=== PATIENT | female | born 1960 | race Caucasian/White ===

== ENCOUNTER → 2019-07-27 14:34 | Outpatient (BNVA) | payer BC, SELFPAY | PROVIDERS: Family Provider Family Medicine; PCP Family Medicine; Visit Provider Podiatrist Foot & Ankle Surgery | DX: Z98.890 Other specified postprocedural states (principal) | CPT/HCPCS: 73630 ==

== ENCOUNTER → 2019-09-06 08:35 | Outpatient (BNVA) | payer BC, SELFPAY | PROVIDERS: Family Provider Family Medicine; PCP Family Medicine; Visit Provider Podiatrist Foot & Ankle Surgery | DX: Z98.890 Other specified postprocedural states (principal); M77.32 Calcaneal spur, left foot | CPT/HCPCS: 73630 ==

== ENCOUNTER 2020-01-26 11:57 | Outpatient (CLI) | payer BC, SELFPAY ==
--- NOTE | 2020-01-26 12:05 | MM_ITS ---
WS: [id number] SCREENING DIGITAL MAMMOGRAM WITH CAD HISTORY: SCREENING COMPARISON: 11/02/2018, 10/20/2017, 10/07/2016 and 09/16/2015 Bilateral CC and MLO views submitted. Computer aided detection analyzed. Breast composition: There are scattered areas of fibroglandular density. Irregular asymmetry measurin g 10 mm 2-3 o'clock axis of the LEFT breast posteriorly. New since the prior study. Additional asymme tries are stable. LEFT breast: Spot compression views (CC and MLO). True ML. Ultrasound to follow if abnormality fauzia adam. MM/[place] [id number] IMPRESSION: BI-RADS: 0-Incomplete: Need additional imaging evaluation FOLLOW UP: Need Additional Imaging
== END 2020-01-26 11:58 | disposition home or self-care (01) ==
LOC: RADSHAW 12:03
PROVIDERS: PCP Family Medicine; Visit Provider Family Medicine
DX: Z12.31 Encounter for screening mammogram for malignant neoplasm of breast (principal); N64.89 Other specified disorders of breast
CPT/HCPCS: 77067

== ENCOUNTER 2020-02-22 08:38 | Outpatient (CLI) | payer BC, SELFPAY ==
--- NOTE | 2020-02-22 08:42 | US_ITS ---
WS: [id number] ADDITIONAL VIEWS LEFT MAMMOGRAM LEFT BREAST ULTRASOUND HISTORY: ABNORMAL MAMMOGRAM COMPARISON: 01/26/2020 and 11/02/2018 and 10/20/2017 LEFT MAMMOGRAM: Spot compression views and true ML. Asymmetry persists in the central LEFT breast just lateral to the nipple. No distortion. This asymmet ry may have been present on prior studies but appears more obvious on more recent examination. LEFT BREAST ULTRASOUND 2-D and color Doppler imaging submitted. By ultrasound no abnormality is identified. Ultrasound is directed to the lateral LEFT breast. US/US breast LT limited* [id number] IMPRESSION: BI-RADS: 3-Probably Benign FOLLOW UP: 6 Month Follow-up Recommend diagnostic mammogram in 6 months LEFT breast and possible ultrasound to follow. This asymmetry needs to be evaluated for long-term stability.
== END 2020-02-22 08:39 | disposition home or self-care (01) ==
LOC: RADSHAW 08:39
PROVIDERS: PCP Family Medicine; Visit Provider Family Medicine
DX: R92.8 Other abnormal and inconclusive findings on diagnostic imaging of breast (principal); N64.89 Other specified disorders of breast
CPT/HCPCS: 76642; 77065

== ENCOUNTER 2020-08-19 08:41 | Outpatient (CLI) | payer BC, SELFPAY ==
--- NOTE | 2020-08-19 08:51 | MM_ITS ---
WS: [id number] LEFT DIGITAL MAMMOGRAPHY WITH CAD CLINICAL INFORMATION: 6 MO F/U;ABNL/INCONCLUSIVE FINDINGS ON DIAG IMAGING OF BREAS HISTORY: COMPARISON: February 22, 2020 TECHNIQUE: views of the left breast were obtained. FINDINGS: Scattered fibroglandular densities of the left breast. Lucent centered calcifications left breast. Pe rsistent but unchanged asymmetry in the central left breast cyst lateral to the nipple. Ultrasound is pending. No other interval changes. ULTRASOUND BREAST LEFT TECHNIQUE: Ultrasound left breast focused area of concern. CLINICAL INFORMATION: 6 MO F/U;ABNL/INCONCLUSIVE FINDINGS ON DIAG IMAGING OF BREAS FINDINGS: Ultrasound left breast at the 2 to 4:00 position. No evidence of pathologic mass or lesion. No lesion s to target for biopsy. No suspicious findings. MM/[place] [id number] IMPRESSION: BI-RADS: 2-Benign FOLLOW UP: 1 Year Follow-up Recommend return to annual screening mammography.
== END 2020-08-19 08:42 | disposition home or self-care (01) ==
LOC: RADSHAW 08:46
PROVIDERS: PCP Family Medicine; Visit Provider Family Medicine
DX: R92.8 Other abnormal and inconclusive findings on diagnostic imaging of breast (principal)
CPT/HCPCS: 76642; 77065

== ENCOUNTER 2021-09-09 10:42 | Outpatient (CLI) | payer BC, SELFPAY ==
--- NOTE | 2021-09-09 10:52 | MM_ITS ---
WS: [id number] BILATERAL DIGITAL SCREENING MAMMOGRAPHY WITH CAD CLINICAL INFORMATION: SCREENING HISTORY: Screening mammogram. No current complaints. COMPARISON: August 19, 2020 TECHNIQUE: Bilateral CC and MLO views. FINDINGS: Scattered fibroglandular densities bilaterally. Lucent centered calcifications No suspicious focal ma ss, asymmetry, calcifications, or architectural distortion. No evidence of malignancy. MM/[place] [id number] IMPRESSION: BI-RADS: 2-Benign FOLLOW UP: 1 Year Follow-up Recommend return to annual screening mammography.
== END 2021-09-09 10:43 | disposition home or self-care (01) ==
LOC: RADSHAW 10:47
PROVIDERS: PCP Family Medicine; Visit Provider Family Medicine
DX: Z12.31 Encounter for screening mammogram for malignant neoplasm of breast (principal)
CPT/HCPCS: 77067

== ENCOUNTER 2022-09-16 12:48 | Outpatient (CLI) | payer BC, SELFPAY ==
--- NOTE | 2022-09-16 12:54 | MM_ITS ---
WS: [id number] BILATERAL 3D TOMOSYNTHESIS DIGITAL SCREENING MAMMOGRAPHY WITH CAD CLINICAL INFORMATION: SCREEN HISTORY: Screening mammogram. No current complaints. COMPARISON: September 09, 2021 TECHNIQUE: Bilateral CC and MLO views. FINDINGS: Scattered fibroglandular densities bilaterally. No suspicious focal mass, asymmetry, calcifications, or architectural distortion. No evidence of malignancy. Punctate and lucent centered calcifications. MM/[place] [id number] IMPRESSION: BI-RADS: 2-Benign FOLLOW UP: 1 Year Follow-up Recommend return to annual screening mammography.
== END 2022-09-16 12:49 | disposition home or self-care (01) ==
LOC: RAD 12:51
PROVIDERS: PCP Family Medicine; Visit Provider Family Medicine
DX: Z12.31 Encounter for screening mammogram for malignant neoplasm of breast (principal)
CPT/HCPCS: 77063; 77067

== ENCOUNTER 2023-08-13 14:39 | Inpatient (IN) | payer BC, SELFPAY ==
[2023-08-13 14:40] VITALS: BP 136/90; PULSE 81; RESP 14; TEMP 37.7; O2SAT 94
--- NOTE | 2023-08-13 14:50 | XR_ITS ---
WS: [id number] XR KUB portable [id number] REASON FOR EXAM: lower abd pain FINDINGS: No free air or retroperitoneal air. Moderate amount of stool retained throughout the colon. Several short segments gas-filled small bowel, nonspecific. No mass. No urinary tract calculi. Calcification of sacral ligaments. Mild degenerative spondylosis in the lumbar spine. IMPRESSION: No acute abnormality.
--- NOTE | 2023-08-13 14:57 | ECG_ITS ---
[facility] Test Date: 2023-08-13 Pat Name: Nova Mary Department: Room: Gender: Female Security Project Manager: : 1960 Requested By: Imtiaz Prince Order Number: [id number] Courtney MD: Kp Sellers M.D. Measurements Intervals Crawford Rate: 81 P: 30 WV: 144 QRS: 11 QRSD: 95 T: 19 QT: 340 QTc: 397 Interpretive Statements SINUS RHYTHM MINIMAL ST DEPRESSION [0.025+ mV ST DEPRESSION] No previous ECG available for comparison Electronically Signed On 08-13-2023 21:47:25 MATH TUTOR by Kp Sellers M.D. [email or web address].[email or web address] [id number]
[2023-08-13 15:08] VITALS: BP 136/90; PULSE 80; RESP 20; O2SAT 92
[2023-08-13 15:12] LABS: Basophils % 0.6 %; Eosinophils # 0.1 10^3/uL (0.0-0.8); Eosinophils % 1.7 %; Hematocrit 34.5 % (36-47); Lymphocytes # 0.8 10^3/uL (0.8-4.8); Lymphocytes % 11.8 %; Mean Corpuscular HGB Conc 32.5 g/dL (30-55); Mean Corpuscular Hemoglobin 26.9 pg (27-33); Mean Corpuscular Volume 82.9 fl (85-98); Mean Platelet Volume 8.4 fL (7.4-10.4); Monocytes # 0.7 10^3/uL (0.2-0.9); Monocytes % 10.7 %; Neutrophils # 5.19 10^3/uL (1.8-7.7); Neutrophils % 74.9 %; Nucleated Red Blood Cells % 0 %; Platelet Count 459 10^3/cmm (157-399); Red Blood Count 4.16 10^6/uL (3.85-5.65); Red Cell Distribution Width 14.6 % (12.1-15.1); White Blood Count 6.93 10^3/uL (3.29-11.43)
[2023-08-13 15:31] LABS: Add Urine Microscopic? YES; Bilirubin Urine 1+ (Negative); Blood Urine Neg (Negative); Glucose Urine UA Norm (Normal); Ketones Urine 1+ (Negative); Leukocyte Esterase Urine 1+ (Negative); Nitrate Urine Negative (Negative); Protein Urine 1+ (Negative); RBC Urine 0-4 /hpf (0-2); Specific Gravity, Urine 1.015 (1.005-1.030); Squamous Epithelial Cell Urine 15-25 /hpf (0-5); Urine Appearance SL Hazy (CLEAR); Urine Color Yellow (Yellow); Urobilinogen Urine 4 mg/dL (Negative); pH Urine 5 (5-7)
[2023-08-13 15:32] LABS: Add Urine Culture? No; Bacteria Urine TRACE /hpf; Mucus Urine 4+ /hpf
[2023-08-13 15:36] LABS: Alanine Aminotransferase 10 U/L (0-33); Albumin Level 3.4 g/dL (3.5-5.2); Alkaline Phosphatase 108 U/L (35-105); Anion Gap 16.8 (5-19); Aspartate Amino Transferase 12 U/L (0-32); Blood Urea Nitrogen 15 mg/dL (8-23); Calcium 9.2 mg/dL (8.5-10.5); Carbon Dioxide 28 mmol/L (22-29); Chloride 97 mmol/L (98-107); Globulin 3.8 g/dL (1.3-4.6); Glomerular Filtration Rate 101.3 mL/min (90-130); Glucose 123 mg/dL (65-115); Lipase 19 U/L (13-60); Osmolality Calculated 290 mOsm/kg (285-295); Sodium 139 mmol/L (136-145); Total Bilirubin 0.2 mg/dL (0.15-1.2); Total Protein 7.2 g/dL (6.6-8.7)
[2023-08-13 15:38] LABS: Potassium 2.8 mmol/L (3.5-5.1)
[2023-08-13] MEDS: potassium chloride ER 20 mEq Tablet 60 MEQ PO (15:51)
[2023-08-13 16:08] VITALS: BP 136/90; PULSE 79; RESP 27; O2SAT 92
--- NOTE | 2023-08-13 16:40 | ED_ITS ---
HPI - Abdominal Pain 2 General: Chief Complaint: Abdominal Pain Stated Complaint: low potassium Time Seen by Provider: 08/13/23 14:45 History of Present Illness: 62-year-old female presents emergency de partment with complaints that her primary care provider checked her potassium level and it was low and told her to come to the emergency department to have it evaluated. Patient also complains of bilateral lower abdominal pain. She states this has been ongoing for several months intermittently since March. She states she was also taking a diuretic and recently advised her primary care doctor Dr. Rachael Barrios that she was going to stop her diuretics as the swelling in her lower extremities has now subsided. She rates her lower abdominal pain an 8 out of 10 when it occurs. She states she has no difficulty with bowel movements. Review of Systems 2 GI: Reports: abdominal pain PFSH ED 2 PFSH: Medical History Bunion of left foot Bunion, right foot Hammertoe of left foot Surgical History S/P hammer toe correction S/P bunionectomy Family History Mother Cancer Denies family history of Diabetes CAD (coronary artery disease) Clotting disorder Dementia Hyperlipidemia Psychiatric illness Chronic kidney disease (CKD) Suicide Anesthesia complication Bleeding disorder Family history of premature coronary artery disease Lung disease Hypertension Stroke Social History Smoking and tobacco/nicotine status: former use of tobacco/nicotine Quit status (tobacco/nicotine): has quit using Year quit tobacco: 5 years ago Second hand smoke exposure: No Alcohol intake: former Substance/Drug Use: never Physical Exam 2 Narrative: EXAM NARRATIVE: Constitutional: the patient appears well nourished and of normal development. Vital signs as documented. No acute distress at present. Alert and oriented-to person, place, time and situation. Head, eyes, ears, nose, mouth, throat: Normocephalic, atraumatic. Pupils-equal, round, reactive to light. No scleral icterus. Normal-appearing external ears. Normal appearing nasal turbinates, no drainage. No obvious oral lesions, posterior oropharynx without erythema or exudates. Neck: Supple, trachea is midline, no lymphadenopathy, no jugular venous distension, thyromegaly, or carotid bruits. Carotid upstrokes are brisk bilaterally. Lungs: clear to auscultation to all lung cunningham. Symmetrical rise and fall of chest, no obvious signs of increased work of breathing at present. Cardiac: Regular rate and rhythm, positive S1, S2. No murmurs, rubs or gallops that I can appreciate Abdomen: Soft, slightly tender to palpation to the bilateral lower abdomen., normal active bowel sounds to all quadrants. No palpable masses, no organomegaly and abdominal bruits. Extremities: 2+ pulses in the upper extremities that are equal bilaterally, 2+ pulses in the lower extremities that are equal bilaterally. Non-edematous. Moves all extremities well, sensation to all extremities are noted. Skin: Warm, dry, intact. Course 2 Vital Signs: Vital signs: Vital Signs Temperature 98.1 F 08/15/23 12:00 Pulse Rate 80 08/15/23 12:00 Respiratory Rate 16 08/15/23 12:00 Blood Pressure 137/83 08/15/23 12:00 Pulse Oximetry 93 08/15/23 12:00 Oxygen Delivery Me thod Room Air 08/15/23 12:00 MDM - Abdominal Pain Medical Decision Making Physical exam completed and documented, I reviewed the patient's CBC and CMP it does appear that her potassium level is low given her complaints of lower abdominal pain I will obtain a CT scan of her abdomen pelvis for evaluation. Differential diagnosis includes constipation, gastroenteritis, colitis, diverticulitis, abdominal abscess. I did provide the patient potassium repletion and given the CT scan findings have provided her antibiotics and advised her that I would admit to the hospital for additional evaluation treatment and care. Lab Data 08/15/23 03:55 08/15/23 03:55 Labs/Radiology: Radiology Impressions Abdomen/Pelvis CT 08/13/23 16:59 IMPRESSION: 1. Descending colon and sigmoid diverticulosis. Changes consistent with severe diverticulitis with localized perforation in the proximal/mid sigmoid colon. There is a pericolonic abscess with internal foci of air just medial to the proximal sigmoid colon and a 2nd pericolonic abscess just anterior to the proximal/mid sigmoid colon. Findings are consistent 2. Incidental/nonacute findings are listed in the report. COMMENTS: 1. THIS REPORT CONTAINS FINDINGS THAT MAY BE CRITICAL TO PATIENT CARE. The findings were verbally communicated via telephone conference with MERCEDES Daigle at 5:56 PM DELIVERY SUPERVISOR on 08/13/2023. The findings were acknowledged and understood. 2. Consistent with the [employer]'s Incidental Findings Committee white paper (J Am Megan Radiol 2018): Any incidental renal lesion less than 1 cm or classified as too small to characterize, or any incidental cystic renal lesion characterized as simple-appearing, is likely benign. No follow-up imaging is recommended for these lesions per consensus recommendations based on imaging criteria. Laboratory Results WBC 6.93 10^3/uL (3.29-11.43) 08/13/23 15:03 RBC 4.16 10^6/uL (3.85-5.65) 08/13/23 15:03 Hgb 11.20 g/dL (11.27-16.99) L 08/13/23 15:03 Hct 34.5 % (36-47) L 08/13/23 15:03 MCV 82.9 fl (85-98) L 08/13/23 15:03 MCH 26.9 pg (27-33) L 08/13/23 15:03 MCHC 32.5 g/dL (30-55) 08/13/23 15:03 RDW 14.6 % (12.1-15.1) 08/13/23 15:03 Plt Count 459 10^3/cmm (157-399) H 08/13/23 15:03 MPV 8.4 fL (7.4-10.4) 08/13/23 15:03 Neut % (Auto) 74.9 % 08/13/23 15:03 Lymph % (Auto) 11.8 % 08/13/23 15:03 [place] % (Auto) 10.7 % 08/13/23 15:03 Eos % (Auto) 1.7 % 08/13/23 15:03 Baso % (Auto) 0.6 % 08/13/23 15:03 Neut # (Auto) 5.19 10^3/uL (1.8-7.7) 08/13/23 15:03 Lymph # (Auto) 0.8 10^3/uL (0.8-4.8) 08/13/23 15:03 [place] # (Auto) 0.7 10^3/uL (0.2-0.9) 08/13/23 15:03 Eos # (Auto) 0.1 10^3/uL (0.0-0.8) 08/13/23 15:03 Baso # (Auto) 0.0 10^3/uL (0.0-0.1) 08/13/23 15:03 Nucleated RBC % (auto) 0 % 08/13/23 15:03 Nucleated RBCs # 0.0 /100WBC 08/13/23 15:03 Sodium 139 mmol/L (136-145) 08/13/23 15:03 Potassium 2.8 mmol/L (3.5-5.1) L* 08/13/23 15:03 Chloride 97 mmol/L (98-107) L 08/13/23 15:03 Carbon Dioxide 28 mmol/L (22-29) 08/13/23 15:03 Anion Gap 16.8 (5-19) 08/13/23 15:03 BUN 15 mg/dL (8-23) 08/13/23 15:03 Creatinine 0.6 mg/dL (0.5-0.9) 08/13/23 15:03 GFR Calculation 101.3 mL/min (90-130) 08/13/23 15:03 Glucose 123 mg/dL (65-115) H 08/13/23 15:03 Calculated Osmolality 290 mOsm/kg (285-295) 08/13/23 15:03 Calcium 9.2 mg/dL (8.5-10.5) 08/13/23 15:03 Total Bilirubin 0.2 mg/dL (0.15-1.2) 08/13/23 15:03 AST 12 U/L (0-32) 08/13/23 15:03 ALT 10 U/L (0-33) 08/13/23 15:03 Alkaline Phosphatase 108 U/L (35-105) H 08/13/23 15:03 Total Protein 7.2 g/dL (6.6-8.7) 08/13/23 15:03 Albumin 3.4 g/dL (3.5-5.2) L 08/13/23 15:03 Globulin 3.8 g/dL (1.3-4.6) 08/13/23 15:03 Lipase 19 U/L (13-60) 08/13/23 15:03 Urine Color Yellow (Yellow) 08/13/23 14:56 Urine Appearance Sl hazy (CLEAR) A 08/13/23 14:56 Urine pH 5 (5-7) 08/13/23 14:56 Ur Specific [place] 1.015 (1.005-1.030) 08/13/23 14:56 Urine Protein 1+ (Negative) H 08/13/23 14:56 Urine Glucose (UA) Norm (Normal) 08/13/23 14:56 Urine Ketones 1+ (Negative) H 08/13/23 14:56 Urine Blood Neg (Negative) 08/13/23 14:56 Urine Nitrate Negative (Negative) 08/13/23 14:56 Urine Bilirubin 1+ (Negative) H 08/13/23 14:56 Urine Urobilinogen 4 mg/dL (Negative) H 08/13/23 14:56 Ur Leukocyte Esterase 1+ (Negative) H 08/13/23 14:56 Urine RBC 0-4 /hpf (0-2) H 08/13/23 14:56 Urine WBC 10-15 /hpf (0-5) H 08/13/23 14:56 Ur Squamous Epith Cells 15-25 /hpf (0-5) H 08/13/23 14:56 Amorphous Sediment Not Reportable 08/13/23 14:56 Urine Bacteria Trace /hpf (NONE) 08/13/23 14:56 Urine Mucus 4+ /hpf 08/13/23 14:56 All radiology interpretation(s) finalized by discharge Discharge Plan Discharge Patient Disposition: Admitted As Inpatient Admit Provider: Latricia Rosenthal Clinical Impression: Pericolonic abscess, Diverticulitis of large intestine with complication, Acute hypokalemia Condition: Stable Coding Level of Care Code ED Carpenter Repairer for Tjg Joseph
--- NOTE | 2023-08-13 16:59 | CTR_ITS ---
PROCEDURE INFORMATION: Exam: CT Abdomen And Pelvis With Contrast Exam date and time: 08/13/2023 5:17 PM Age: 62 years old Clinical indication: Abdominal pain; Localized; Left lower quadrant (llq); Additional info: Abd pain llq TECHNIQUE: Imaging protocol: Computed tomography of the abdomen and pelvis with contrast. Sagittal and coronal reformatted images were created and reviewed. Radiation optimization: All CT scans at this facility use at least one of these dose optimization techniques: automated exposure control; mA and/or kV adjustment per patient size (includes targeted exams where dose is matched to clinical indication); or iterative reconstruction. Contrast material: OMNI 350; Contrast volume: 100 ml; Contrast route: INTRAVENOUS (IV); COMPARISON: CR XR KUB portable [id number] 08/13/2023 3:05 PM RADIATION DOSE METRICS: Total DLP (mGy-cm): 928.96 FINDINGS: Lungs: Visualized lungs are clear. Pleural spaces: No pleural effusion. Heart: Visualized portions of the heart are mildly enlarged. Liver: The liver is unremarkable. Gallbladder and bile ducts: The gallbladder is unremarkable. No biliary ductal dilatation. Pancreas: The pancreas is unremarkable. No pancreatic ductal dilatation. Spleen: The spleen is unremarkable. Adrenal glands: The right and left adrenal glands are unremarkable. Kidneys and ureters: The right kidney is unremarkable. Subcentimeter hypodense focus in the left kidney that is too small to characterize, however likely represents a small cyst. Stomach and bowel: The stomach is unremarkable for the degree of distension. No acute abnormality in the small bowel. Numerous diverticula in the descending colon and sigmoid colon. Marked wall thickening with extensive surrounding pericolonic inflammatory change involving the proximal/mid sigmoid colon. There is a pericolonic abscess with internal foci of air just medial to the proximal sigmoid colon measuring 4.2 x 5.1 x 2.9 cm (series 11, image 26 and series 5, image 66). A 2nd pericolonic abscess just anterior to the proximal/mid sigmoid colon measures 1.8 x 1.4 x 2.0 cm (series 11, image 23 and series 5, image 76). Appendix: The appendix is visualized and is unremarkable. No findings to suggest acute appendicitis. Intraperitoneal space: No free intraperitoneal air. No ascites. See also under stomach and bowel . Vasculature: Mild atherosclerotic changes in the visualized arteries. No evidence for aortic aneurysm or aortic dissection. Hepatic veins, portal veins, splenic vein, and SMV are patent. Lymph nodes: No lymphadenopathy. Urinary bladder: The bladder is unremarkable for the degree of distension. Reproductive: Small partially calcified intrauterine leiomyoma measuring 1.0 x 1.0 cm. The right and left ovaries are unremarkable. Bones/joints: Bones are mildly osteopenic. The patient has had a previous right hip arthroplasty. Moderate degenerative change at the left hip. Multilevel degenerative changes of varying severity in the Soft tissues: No acute abnormality in the extra-abdominal soft tissues. CT/CT abdomen pelvis w con* [id number] IMPRESSION: 1. Descending colon and sigmoid diverticulosis. Changes consistent with severe diverticulitis with localized perforation in the proximal/mid sigmoid colon. There is a pericolonic abscess with internal foci of air just medial to the proximal sigmoid colon and a 2nd pericolonic abscess just anterior to the proximal/mid sigmoid colon. Findings are consistent 2. Incidental/nonacute findings are listed in the report. COMMENTS: 1. THIS REPORT CONTAINS FINDINGS THAT MAY BE CRITICAL TO PATIENT CARE. The findings were verbally communicated via telephone conference with MERCEDES Daigle at 5:56 PM FISH FLIPPER on 08/13/2023. The findings were acknowledged and understood. 2. Consistent with the [employer]'s Incidental Findings Committee white paper (J Am Megan Radiol 2018): Any incidental renal lesion less than 1 cm or classified as too small to characterize, or any incidental cystic renal lesion characterized as simple-appearing, is likely benign. No follow-up imaging is recommended for these lesions per consensus recommendations based on imaging criteria.
[2023-08-13] MEDS: cefTRIAXone 1,000 MG in sodium chloride 0.9% (plus) 50 ML 100 MG IV (17:04)
[2023-08-13] MEDS: iohexol 350 mg/mL 500 mL Btl (per mL) IV (17:21)
[2023-08-13 17:43] VITALS: BP 138/86; PULSE 78; RESP 14; O2SAT 98
[2023-08-13 19:12] VITALS: BP 124/79; PULSE 74; RESP 14; O2SAT 91
[2023-08-13 19:33] LABS: Lactic Sepsis W/Reflex 0.7 mmol/L (0.5-2.2)
[2023-08-13 19:39] LABS: Procalcitonin 0.28 ng/mL (0-0.5)
[2023-08-13 20:00] VITALS: BP 107/70; PULSE 73; RESP 18; TEMP 36.3; O2SAT 94
--- NOTE | 2023-08-13 20:01 | P.HP_ITS ---
Providers/Chief Complaint 2 Admitting Physician: Latricia Rosenthal MD Primary Care Provider: Rachael Barrios MD Chief Complaint: low potassium History of Present Illness Nova Mary is a 62 year old female who presented to the emergency room with chief complaints of 3 months of intermittent abdominal pain. Patient states that she has been experiencing pain in her lower abdomen for about 3 months. Does not recall any immediate inciting factors or trauma. States that pain is located in lower abdomen, varies between 3-6 on intensity, nonradiating sharp stabbing type. She had been taking medications for gastritis/reflux and gave up on NSAIDs thinking that that may be the problem. Visited with her PCP earlier this week and was recommended to get a CAT scan. This was completed in the ER and showed a pericolonic abscess with internal foci of air just medial to the proximal sigmoid colon measuring 4.2 x 5.1 x 2.9 cm. A second pericolonic abscess just anterior to the proximal/mid sigmoid colon measures 1.8 x 1.4 x 2 cm. Appendix was unremarkable. Numerous small diverticuli were noted in the descending colon and the sigmoid colon. Patient states she had a colonoscopy 5 to 6 years ago, was overall unremarkable. She gets annual FOB screening which was recently negative. She has had regular bowel movements, does take Metamucil daily for the same. History of chronic constipation. She has not noticed any blood or mucus in stools. No diarrhea. No nausea or vomiting, however her appetite has been much lower since the symptoms started. She estimates she has lost 23 pounds over the last 3 months. Not noticed any fevers at home. Tmax 99.9 Fahrenheit in the hospital. No past history of known colon malignancy. No family history of colon cancer. Her mother had breast cancer. Review of Systems 2 General: Reports: 10 or more systems reviewed and unremarkable except in HPI and below Const: Denies: fever(s), chills or body aches Eyes: Denies: change in vision, blurry vision or photophobia ENMT: Reports: hoarseness; Denies: throat pain, enlarged tonsils, odynophagia or nasal congestion Card: Denies: chest pain, palpitations, irregular heart rhythm, edema, swelling of feet/ankles, lightheadedness, pre-syncope, dyspnea on exertion or orthopnea Resp: Denies: dyspnea, productive cough, non-productive cough, wheezing, stridor, pain on inspiration, change in phlegm color, hemoptysis or chest congestion GI: Denies: abdominal pain, nausea, vomiting, hematemesis, coffee ground emesis, dysphagia, heartburn, diarrhea, constipation, GI cramping, change in stool character, hematochezia or melena : Denies: flank pain, difficulty voiding, dysuria, urinary frequency, urinary urgency, urinary hesitancy or hematuria Musc: Denies: neck pain, back pain, extremity pain, joint swelling, joint warmth or deformity Neuro: Denies: headache(s), numbness in extremities, weakness in extremities, sensory changes, difficulty walking, frequent falls, dizziness, vertigo, behavioral changes, Slurred speech present or seizure-like activity Psych: Denies: anxiety, depression, suicidal ideation or homicidal ideation Endo: Denies: polyuria, polydipsia, tired all the time, cold intolerance or hot flashes Wood/Lymph: Denies: easy bruising or easy bleeding Medications/Allergies Home Medications Medication Instructions Recorded Confirmed Last Taken Type vitamin B complex (B 1 tab PO DAILY 07/27/19 08/13/23 08/12/23 History Complex-Vitamin B12 tablet) calcium carbonate 500 mg calcium 500 mg PO BID 08/13/23 08/13/23 08/12/23 History (1,250 mg) tablet bzqqhlj-movczohfs-sgdt 333 mg-133 1 tab PO DAILY 08/13/23 08/13/23 08/12/23 History mg-5 mg tablet cholecalciferol (vitamin D3) 25 25 mcg PO DAILY 08/13/23 08/13/23 08/12/23 History mcg (1,000 unit) tablet (Vitamin D3) dorzolamide 22.3 mg-timolol 6.8 1 drp ophthalmic (eye) DAILY 08/13/23 08/13/23 08/12/23 History mg/mL eye drops fluticasone propionate 50 2 spray intranasal DAILY PRN 08/13/23 08/13/23 Unknown History mcg/actuation nasal Allergy Symptoms spray,suspension latanoprost 0.005 % eye drops 1 drp ophthalmic (eye) DAILY 08/13/23 08/13/23 08/12/23 History levothyroxine 175 mcg tablet 175 mcg PO DAILY 08/13/23 08/13/2324 History (Synthroid) kyzpzwzb-zwz-nxil-FA-Ca carb-vit K 1 tab PO DAILY 08/13/23 08/13/23 08/12/23 History 18 mg iron-400 mcg-500 mg tablet pantoprazole 40 mg tablet,delayed 40 mg PO DAILY 08/13/23 08/13/23 08/12/23 History release potassium chloride 10 mEq 10 meq PO BID 08/13/23 08/13/23 08/12/23 History tablet,extended release propranolol 10 mg tablet 10 mg PO BEDTIME 08/13/23 08/13/23 08/12/23 History Allergies Allergy/AdvReac Type Severity Reaction Status Date / Time No Known Allergies Allergy Verified 07/27/19 14:23 PFSH Acute 2 PFSH: Medical History Bunion of left foot Bunion, right foot Hammertoe of left foot Surgical History S/P hammer toe correction S/P bunionectomy Family History Mother Cancer Denies family history of Diabetes CAD (coronary artery disease) Clotting disorder Dementia Hyperlipidemia Psychiatric illness Chronic kidney disease (CKD) Suicide Anesthesia complication Bleeding disorder Family history of premature coronary artery disease Lung disease Hypertension Stroke Social History Smoking and tobacco/nicotine status: former use of tobacco/nicotine Quit status (tobacco/nicotine): has quit using Year quit tobacco: 5 years ago Second hand smoke exposure: No Alcohol intake: former Substance/Drug Use: never Vitals/I&O/Wt Last Vital Signs Temp 99.9 F H 08/13/23 14:40 Pulse 74 08/13/23 19:12 Resp 14 08/13/23 19:12 BP 124/79 08/13/23 19:12 Pulse Ox 91 08/13/23 19:12 O2 Del Method Room Air 08/13/23 19:12 08/13/23 08/13/23 08/13/23 06:59 14:59 22:59 Intake Total 50 / 50 Balance 50 / 50 Weight last 48 hrs Weight 98.883 kg Physical Exam 2 Narrative: General: No acute distress, AO x3 HEENT: PERRLA, pupils bilaterally equal and reactive, pallors not present Chest: Normal vesicular breath sounds, no added sounds, equal good air entry bilaterally CVS: S1-S2 regular, no murmurs, no tachycardia, no gallops, no rubs Abdomen: Soft, mild tenderness to palpation in the lower abdomen, no organomegaly, bowel sounds present Neuro: No focal deficits, no facial deformity, AO x3, power 5/5 in all limbs Data 08/14/23 04:06 08/14/23 04:06 Other Labs: [facility] [address] [facility] [place] [place] [address] CT Scan Report Signed Patient: Nova Mary Unit #: [id number] : [id number] Age/Sex: 62 / F ADM Date: 08/13/23 Loc: ER Room/Bed: Attending Dr: Ordering Provider/Ordering MD: Imtiaz Prince MD Date of Service: 08/13/23 Procedure(s): CT abdomen pelvis w con* [id number] Accession Number(s): [id number] Report Number: [id number] PROCEDURE INFORMATION: Exam: CT Abdomen And Pelvis With Contrast Exam date and time: 08/13/2023 5:17 PM Age: 62 years old Clinical indication: Abdominal pain; Localized; Left lower quadrant (llq); Additional info: Abd pain llq TECHNIQUE: Imaging protocol: Computed tomography of the abdomen and pelvis with contrast. Sagittal and coronal reformatted images were created and reviewed. Radiation optimization: All CT scans at this facility use at least one of these dose optimization techniques: automated exposure control; mA and/or kV adjustment per patient size (includes targeted exams where dose is matched to clinical indication); or iterative reconstruction. Contrast material: OMNI 350; Contrast volume: 100 ml; Contrast route: INTRAVENOUS (IV); COMPARISON: CR XR KUB portable [id number] 08/13/2023 3:05 PM RADIATION DOSE METRICS: Total DLP (mGy-cm): 928.96 FINDINGS: Lungs: Visualized lungs are clear. Pleural spaces: No pleural effusion. Heart: Visualized portions of the heart are mildly enlarged. Liver: The liver is unremarkable. Gallbladder and bile ducts: The gallbladder is unremarkable. No biliary ductal dilatation. Pancreas: The pancreas is unremarkable. No pancreatic ductal dilatation. Spleen: The spleen is unremarkable. Adrenal glands: The right and left adrenal glands are unremarkable. Kidneys and ureters: The right kidney is unremarkable. Subcentimeter hypodense focus in the left kidney that is too small to characterize, however likely represents a small cyst. Stomach and bowel: The stomach is unremarkable for the degree of distension. No acute abnormality in the small bowel. Numerous diverticula in the descending colon and sigmoid colon. Marked wall thickening with extensive surrounding pericolonic inflammatory change involving the proximal/mid sigmoid colon. There is a pericolonic abscess with internal foci of air just medial to the proximal sigmoid colon measuring 4.2 x 5.1 x 2.9 cm (series 11, image 26 and series 5, image 66). A 2nd pericolonic abscess just anterior to the proximal/mid sigmoid colon measures 1.8 x 1.4 x 2.0 cm (series 11, image 23 and series 5, image 76). Appendix: The appendix is visualized and is unremarkable. No findings to suggest acute appendicitis. Intraperitoneal space: No free intraperitoneal air. No ascites. See also under stomach and bowel . Vasculature: Mild atherosclerotic changes in the visualized arteries. No evidence for aortic aneurysm or aortic dissection. Hepatic veins, portal veins, splenic vein, and SMV are patent. Lymph nodes: No lymphadenopathy. Urinary bladder: The bladder is unremarkable for the degree of distension. Reproductive: Small partially calcified intrauterine leiomyoma measuring 1.0 x 1.0 cm. The right and left ovaries are unremarkable. Bones/joints: Bones are mildly osteopenic. The patient has had a previous right hip arthroplasty. Moderate degenerative change at the left hip. Multilevel degenerative changes of varying severity in the Soft tissues: No acute abnormality in the extra-abdominal soft tissues. CT/CT abdomen pelvis w con* [id number] IMPRESSION: 1. Descending colon and sigmoid diverticulosis. Changes consistent with severe diverticulitis with localized perforation in the proximal/mid sigmoid colon. There is a pericolonic abscess with internal foci of air just medial to the proximal sigmoid colon and a 2nd pericolonic abscess just anterior to the proximal/mid sigmoid colon. Findings are consistent 2. Incidental/nonacute findings are listed in the report. A&P Assessment and plan (1) Pericolonic abscess: Patient presenting today with 3 months of intermittent abdominal pain. Found to have 2 pericolonic abscess, suspected from perforated diverticulitis. no knownw h/o colon ca, last colonoscopy 5-6 years ago Admit to med/surg NPO Start piperacillin/tazobactam empirically for broad spectrum coverage including anaerobes. prn morphine for abdominal pain prn zofran for nausea management Consult with general surgery given abscess size reported > 4-5 cm - assess for feasibility of surgical vs IR drainage Plan dvt ppx: Lovenox Full code Attestations 2 Medical Necessity Statement*: > 2 midnight admission is anticipated for her care Coding Level of Care Code Acute Code for Chg Fwd Diagnoses Pericolonic abscess K63.0
[2023-08-13] MEDS: enoxaparin 40 mg/0.4 mL Syringe SUBCUT (21:06)
[2023-08-13] MEDS: dextrose 5%-ns + KCl 40 40 MEQ/1,000 ML BAG 75 MEQ IV (21:07)
[2023-08-13] MEDS: piperacillin-tazobactam 3.375 GM in sodium chloride 0.9% (plus) 50 ML IV (21:07)
[2023-08-13] MEDS: pantoprazole 40 mg SDV IVP (21:07)
[2023-08-13] MEDS: acetaminophen 325 mg Tablet 650 MG PO (21:24)
[2023-08-14] VITALS (7 sets, daily range): BP systolic 105–124; BP diastolic 68–74; PULSE 59–73; RESP 16–18; TEMP 36.5–37; O2SAT 92–97
[2023-08-14] MEDS: piperacillin-tazobactam 3.375 GM in sodium chloride 0.9% (plus) 50 ML IV ×3 (03:03→20:50)
[2023-08-14 04:39] LABS: Basophils % 0.9 %; Eosinophils # 0.3 10^3/uL (0.0-0.8); Eosinophils % 6.3 %; Hematocrit 30.1 % (36-47); Lymphocytes % 23.3 %; Mean Corpuscular HGB Conc 31.2 g/dL (30-55); Mean Corpuscular Volume 86.5 fl (85-98); Mean Platelet Volume 8.8 fL (7.4-10.4); Monocytes # 0.6 10^3/uL (0.2-0.9); Monocytes % 14.7 %; Neutrophils # 2.33 10^3/uL (1.8-7.7); Neutrophils % 54.3 %; Nucleated Red Blood Cells % 0 %; Platelet Count 355 10^3/cmm (157-399); Red Blood Count 3.48 10^6/uL (3.85-5.65); White Blood Count 4.29 10^3/uL (3.29-11.43)
[2023-08-14 04:57] LABS: Alanine Aminotransferase 9 U/L (0-33); Albumin Level 2.9 g/dL (3.5-5.2); Alkaline Phosphatase 84 U/L (35-105); Anion Gap 11.9 (5-19); Aspartate Amino Transferase 10 U/L (0-32); Blood Urea Nitrogen 11 mg/dL (8-23); Calcium 8.2 mg/dL (8.5-10.5); Carbon Dioxide 29 mmol/L (22-29); Chloride 104 mmol/L (98-107); Glucose 110 mg/dL (65-115); Magnesium 2.1 mg/dL (1.7-2.3); Osmolality Calculated 294 mOsm/kg (285-295); Sodium 142 mmol/L (136-145); Total Bilirubin 0.2 mg/dL (0.15-1.2); Total Protein 5.9 g/dL (6.6-8.7)
[2023-08-14 05:10] LABS: Potassium 2.9 mmol/L (3.5-5.1)
[2023-08-14] MEDS: lidocaine 1% 5 ML in potassium chloride premix 100 ML 25 ML IV (06:24)
--- NOTE | 2023-08-14 07:05 | PC.NURSE ---
At 02:00, Dr. Orozco notified that CT report states Descending colon and sigmoid diverticulosis. Changes consistent with severe diverticulitis with localized perforation in the proximal/mid sigmoid colon. There is a pericolonic abscess with internal foci of air just medial to the proximal sigmoid colon and a 2nd pericolonic abscess just anterior to the proximal/mid sigmoid colon. Patient is not c/o abdominal pain, just states that her abdomen feels sore. Patient educated that she is NPO.
--- NOTE | 2023-08-14 12:49 | PC.CHAP ---
Pastoral Care Encounter/Spiritual Assessment Type of Contact [] Declined harness fitter visit [] Patient/Family/Request visit [] Outpatient visit [] Follow-up visit [] Physician referral [] Code/Alert [x] Routine visit [] Staff referral [] Actively dying [] Patient sleeping [] Family support [] [] Out of room [] Palliative care [] [] Receiving care in room [] Pre-surgical visit [] Trauma [] Long length of stay [] ICU visit [] Other: Relational/Emotional Strength [x] Patient feels connected with others/family/visitors/staff [] Distress [] Loneliness/isolation [] Abandonment Spirituality of Patient [x] Person of Catrachita [x] Attends Restoration of their [place] [x] Believes in Prayer [] Reads Bible or Baptist materials [] There are Spiritual issues to be addressed Laundry Clerk Interventions [x] Prayer [] Active listening [] Non-anxious presence [] Spiritual/emotional support [] Crisis/trauma care [] Spiritual counseling [] Bereavement support [] Provided bereavement packet [] Provided Bible/devotional materials [] Provided toy/stuffed animal, coloring book to patient or family member [] Provided Communion [] Anointing/[place] [] Salvation [] Completed spiritual assessment [] Other: Impact on Illness or Injury [] Angry [] Fearful [] Anxious [] Often cries [] Exhaustion [] Unable to work [] Unable to attend mandaen [] Unable to walk/stand [] Unable to read [] Unable to drive [] Unable to eat/drink [] Unable to sleep [] Unable to be with family [] Patient intubated [] Other: Summary prayed with patient and two friends very sweet people enjoyed having prayer Time spent with patient 5 min
[2023-08-14] MEDS: morphine 4 mg/mL SDV 1 mL 2 MG IVP ×2 (13:00→20:57)
[2023-08-14] MEDS: dextrose 5%-ns + KCl 40 40 MEQ/1,000 ML BAG 75 MEQ IV (13:05)
--- NOTE | 2023-08-14 16:08 | PM.PN ---
Subjective Subjective: No new complaints today except a mild headache. Medications: Reviewed: Yes Vitals/I&O/Wt Last Vital Signs Temp 97.8 F 08/14/23 12:00 Pulse 73 08/14/23 12:00 Resp 16 08/14/23 12:00 BP 124/68 08/14/23 12:00 Pulse Ox 97 08/14/23 12:00 O2 Del Method Room Air 08/13/23 19:50 08/14/23 08/14/23 08/14/23 06:59 14:59 22:59 Intake Total 100 / 150 1000 / 1000 Balance 100 / 150 1000 / 1000 Weight last 48 hrs Weight 99.155 kg Weight 99.155 kg Weight 98.883 kg Physical Exam Narrative: General: No acute distress, AO x3 HEENT: PERRLA, pupils bilaterally equal and reactive, pallors not present Chest: Normal vesicular breath sounds, no added sounds, equal good air entry bilaterally CVS: S1-S2 regular, no murmurs, no tachycardia, no gallops, no rubs Abdomen: Soft, mild tenderness to palpation in the lower abdomen, no organomegaly, bowel sounds present Neuro: No focal deficits, no facial deformity, AO x3, power 5/5 in all limbs Data 08/14/23 04:06 08/14/23 04:06 A&P Assessment and plan (1) Pericolonic abscess: Patient presenting today with 3 months of intermittent abdominal pain. Found to have 2 pericolonic abscess, suspected from perforated diverticulitis. no knownw h/o colon ca, last colonoscopy 5-6 years ago Admit to med/surg NPO Start piperacillin/tazobactam empirically for broad spectrum coverage including anaerobes. prn morphine for abdominal pain prn zofran for nausea management Consult with general surgery given abscess size reported > 4-5 cm - assess for feasibility of surgical vs IR drainage Plan dvt ppx: Lovenox Full code Plan for today August 14, 2023: No acute interim events. Continue IV antibiotics. Blood culture thus far with no growth to date. Attestations Medical Necessity Statement*: Continued admission for IV antibiotics, awaiting surgical assessment. Coding Level of Care Code Acute Code for [facility] Diagnoses Pericolonic abscess K63.0
--- NOTE | 2023-08-14 17:05 | P.CONIM_ITS ---
Providers/Reason For Consult 2 Consulting Physician/Specialty*: Dr. Grey Rubalcava, DO/General surgery Reason for Consult*: Complicated diverticulitis Attending Physician: Latricia Rosenthal MD Primary Care Provider: Rachael Barrios MD History of Present Illness History of Present Illness Nova Mary is a 62 year old female who presents to the hospital with a 3-month history of left lower quadrant and suprapubic abdominal pain. The pain has been dull and constant. The pain does not radiate. Palpation and movement make the pain worse. Nothing seems to make the pain better. She reports nausea but denies any emesis. She denies any diarrhea, constipation, hematochezia and/or melena. Her last colonoscopy was 7 years ago and was reportedly within normal limits. She denies any family history of colon cancer. A CT of the abdomen pelvis shows complicated diverticulitis with 2 pericolonic abscesses at the proximal sigmoid colon. Review of Systems 2 General: Reports: 10 or more systems reviewed and unremarkable except in HPI and below Medications/Allergies Home Medications Medication Instructions Recorded Confirmed Last Taken Type vitamin B complex (B 1 tab PO DAILY 07/27/19 08/13/23 08/12/23 History Complex-Vitamin B12 tablet) calcium carbonate 500 mg calcium 500 mg PO BID 08/13/23 08/13/23 08/12/23 History (1,250 mg) tablet jdafkac-oegbeewil-bzpx 333 mg-133 1 tab PO DAILY 08/13/23 08/13/23 08/12/23 History mg-5 mg tablet cholecalciferol (vitamin D3) 25 25 mcg PO DAILY 08/13/23 08/13/23 08/12/23 History mcg (1,000 unit) tablet (Vitamin D3) dorzolamide 22.3 mg-timolol 6.8 1 drp ophthalmic (eye) DAILY 08/13/23 08/13/23 08/12/23 History mg/mL eye drops fluticasone propionate 50 2 spray intranasal DAILY PRN 08/13/23 08/13/23 Unknown History mcg/actuation nasal Allergy Symptoms spray,suspension latanoprost 0.005 % eye drops 1 drp ophthalmic (eye) DAILY 08/13/23 08/13/23 08/12/23 History levothyroxine 175 mcg tablet 175 mcg PO DAILY 08/13/23 08/13/23 08/12/23 History (Synthroid) zqxlbczk-pzr-lath-FA-Ca carb-vit K 1 tab PO DAILY 08/13/23 08/13/23 08/12/23 History 18 mg iron-400 mcg-500 mg tablet pantoprazole 40 mg tablet,delayed 40 mg PO DAILY 08/13/23 08/13/23 08/12/23 History release potassium chloride 10 mEq 10 meq PO BID 08/13/23 08/13/23 08/12/23 History tablet,extended release propranolol 10 mg tablet 10 mg PO BEDTIME 08/13/23 08/13/23 08/12/23 History Allergies Allergy/AdvReac Type Severity Reaction Status Date / Time No Known Allergies Allergy Verified 07/27/19 14:23 Current Medications Generic Name Dose Route Start Last Admin Trade Name Freq PRN Reason Stop Dose Admin Acetaminophen 650 mg 08/13/23 19:51 08/13/23 21:24 Acetaminophen 325 Mg Tablet PO 650 mg Q6H PRN Administration Mild/Mod Pain Or Temp >/= 101 Enoxaparin Sodium 40 mg 08/13/23 20:00 08/13/23 21:06 Enoxaparin 40 Mg/0.4 Ml Syringe SUBCUT 40 mg Q24H JULIO CÉSAR Administration Piperacillin Sod/Tazobactam 50 mls @ 12.5 mls/hr 08/13/23 20:00 08/14/23 12:28 Sod 3.375 gm/ Sodium Chloride IV 12.5 mls/hr Q8H JULIO CÉSAR Administration Protocol Potassium Chloride/Dextrose/Sod Cl 40 meq in 1,000 mls @ 75 mls/hr 08/13/23 20:00 08/14/23 13:05 Dextrose 5%-Ns + Kcl 40 IV 75 mls/hr .[id number] JULIO CÉSAR Administration Morphine Sulfate 2 mg 08/13/23 19:51 08/14/23 13:00 Morphine 4 Mg/Ml Sdv 1 Ml IVP 2 mg Q4H PRN Administration SEVERE PAIN Pantoprazole Sodium 40 mg 08/13/23 20:00 08/13/23 21:07 Pantoprazole 40 Mg Sdv IVP 40 mg Q24H JULIO CÉSAR Administration PFSH Acute 2 PFSH: Medical History Bunion of left foot Bunion, right foot Hammertoe of left foot Surgical History S/P hammer toe correction S/P bunionectomy Family History Mother Cancer Denies family history of Diabetes CAD (coronary artery disease) Clotting disorder Dementia Hyperlipidemia Psychiatric illness Chronic kidney disease (CKD) Suicide Anesthesia complication Bleeding disorder Family history of premature coronary artery disease Lung disease Hypertension Stroke Social History Smoking and tobacco/nicotine status: former use of tobacco/nicotine Quit status (tobacco/nicotine): has quit using Year quit tobacco: 5 years ago Second hand smoke exposure: No Alcohol intake: former Substance/Drug Use: never Vitals/I&O/Wt Last Vital Signs Temp 97.9 F 08/14/23 16:00 Pulse 59 L 08/14/23 16:00 Resp 16 08/14/23 16:00 BP 114/71 08/14/23 16:00 Pulse Ox 94 08/14/23 16:00 O2 Del Method Room Air 08/13/23 19:50 08/14/23 08/14/23 08/14/23 06:59 14:59 22:59 Intake Total 100 / 150 1000 / 1000 Balance 100 / 150 1000 / 1000 Weight last 48 hrs Weight 218 lb 9.6 oz Weight 218 lb 9.6 oz Weight 218 lb Physical Exam 2 Narrative: General : Patient is well developed , no acute distress, oriented x3 Head : Normal cephalic, a-traumatic. Ears : Pinnae and external canal are normal. Hearing is normal. Eyes : PERRLA, Sclera and injection are normal. No conjunctival discharge. Nose : Mucous membranes are without erythema. Throat : buccal mucosa is normal, gums are without significant recession or hypertrophy. Lungs : Equal chest rise bilaterally, no use of accessory muscles, trachea is midline. Cor : Rate and rhythm are normal. Abdomen : Soft, ND, mild left lower quadrant tenderness, no g/r/m Extremities : No edema, no cyanosis or clubbing, dorsalis pedis pulses are present bilaterally, non-tender to palpation of calves. Upper extremities are normal bilaterally. Back : non-tender to palpation, no CVA tenderness. Neuro : CN II - XII intact, Upper and lower extremities have equal and full strength Data 08/14/23 04:06 08/14/23 04:06 A&P Assessment and plan (1) Diverticulitis of large intestine with complication: (2) Pericolonic abscess: Plan IV antibiotics-antibiotic regimen determined by hospitalist/infectious disease Clear liquid diet She will need a colonoscopy in 4 to 6 weeks to assess resolution of diverticulitis and rule out colon tumor. Afterwards, it is recommended that she get an elective sigmoidectomy to avoid complicated diverticulitis and possible colostomy in the future. She is unhappy with these recommendations however Pericolonic abscesses are not large enough for IR drainage. She would likely benefit from repeat CT prior to discharge No acute surgical intervention Medical management per hospitalist Coding Level of Care Code 39095 Diagnoses Diverticulitis of large intestine with complication K57.32 Pericolonic abscess K63.0
[2023-08-14] MEDS: pantoprazole 40 mg SDV IVP (20:53)
[2023-08-14] MEDS: enoxaparin 40 mg/0.4 mL Syringe SUBCUT (20:55)
[2023-08-15] VITALS (7 sets, daily range): BP systolic 113–142; BP diastolic 60–89; PULSE 68–80; RESP 16–18; TEMP 36.6–37; O2SAT 93–94
[2023-08-15] MEDS: dextrose 5%-ns + KCl 40 40 MEQ/1,000 ML BAG 75 MEQ IV ×2 (00:50→12:14)
[2023-08-15] MEDS: piperacillin-tazobactam 3.375 GM in sodium chloride 0.9% (plus) 50 ML IV ×3 (03:42→21:18)
[2023-08-15 04:33] LABS: Basophils % 0.7 %; Eosinophils # 0.3 10^3/uL (0.0-0.8); Eosinophils % 6.4 %; Lymphocytes # 1.1 10^3/uL (0.8-4.8); Lymphocytes % 24.3 %; Mean Corpuscular HGB Conc 29.7 g/dL (30-55); Mean Corpuscular Hemoglobin 26.6 pg (27-33); Mean Corpuscular Volume 89.5 fl (85-98); Monocytes # 0.4 10^3/uL (0.2-0.9); Monocytes % 8.7 %; Neutrophils # 2.57 10^3/uL (1.8-7.7); Nucleated Red Blood Cells % 0 %; Platelet Count 403 10^3/cmm (157-399); Red Blood Count 3.91 10^6/uL (3.85-5.65); Red Cell Distribution Width 15.4 % (12.1-15.1); White Blood Count 4.36 10^3/uL (3.29-11.43)
[2023-08-15 05:00] LABS: Alanine Aminotransferase 8 U/L (0-33); Albumin Level 3.1 g/dL (3.5-5.2); Alkaline Phosphatase 94 U/L (35-105); Anion Gap 11.6 (5-19); Aspartate Amino Transferase 10 U/L (0-32); Blood Urea Nitrogen 9 mg/dL (8-23); Calcium 8.4 mg/dL (8.5-10.5); Carbon Dioxide 27 mmol/L (22-29); Chloride 109 mmol/L (98-107); Globulin 3.3 g/dL (1.3-4.6); Glucose 96 mg/dL (65-115); Osmolality Calculated 297 mOsm/kg (285-295); Potassium 3.6 mmol/L (3.5-5.1); Sodium 144 mmol/L (136-145); Total Bilirubin 0.2 mg/dL (0.15-1.2); Total Protein 6.4 g/dL (6.6-8.7)
--- NOTE | 2023-08-15 10:29 | P.PN_ITS ---
Subjective 2 Subjective: Patient seen and examined. Tolerated clear liquid diet. Pain well-controlled Vitals/I&O/Wt Last Vital Signs Temp 97.9 F 08/15/23 07:50 Pulse 72 08/15/23 07:50 Resp 16 08/15/23 07:50 BP 122/82 08/15/23 07:50 Pulse Ox 94 08/15/23 07:50 O2 Del Method Room Air 08/15/23 07:50 08/14/23 08/15/23 08/15/23 22:59 06:59 14:59 Intake Total 155 / 1155 931.25 / 2086.25 480 / 480 Balance 155 / 1155 931.25 / 2086.25 480 / 480 Weight last 48 hrs Weight 220 lb 8 oz Weight 218 lb 9.6 oz Weight 218 lb 9.6 oz Weight 218 lb Physical Exam 2 Narrative: General : Patient is well developed , no acute distress, oriented x3 Head : Normal cephalic, a-traumatic. Ears : Pinnae and external canal are normal. Hearing is normal. Eyes : PERRLA, Sclera and injection are normal. No conjunctival discharge. Nose : Mucous membranes are without erythema. Throat : buccal mucosa is normal, gums are without significant recession or hypertrophy. Lungs : Equal chest rise bilaterally, no use of accessory muscles, trachea is midline. Cor : Rate and rhythm are normal. Abdomen : Soft, ND, minimal left lower quadrant tenderness, no g/r/m Extremities : No edema, no cyanosis or clubbing, dorsalis pedis pulses are present bilaterally, non-tender to palpation of calves. Upper extremities are normal bilaterally. Back : non-tender to palpation, no CVA tenderness. Neuro : CN II - XII intact, Upper and lower extremities have equal and full strength Data 08/15/23 03:55 08/15/23 03:55 A&P Assessment and plan (1) Diverticulitis of large intestine with complication: (2) Pericolonic abscess: Plan IV antibiotics-antibiotic regimen determined by hospitalist/infectious disease Advance to full liquid diet She will need a colonoscopy in 4 to 6 weeks to assess resolution of diverticulitis and rule out colon tumor. Afterwards, it is recommended that she get an elective sigmoidectomy to avoid complicated diverticulitis and possible colostomy in the future. She is unhappy with these recommendations however Pericolonic abscesses are not large enough for IR drainage. She would likely benefit from repeat CT prior to discharge No acute surgical intervention Medical management per hospitalist Attestations 2 Medical Necessity Statement*: Per primary Coding Level of Care Code Acute Code for Chg Fwd Diagnoses Diverticulitis of large intestine with complication K57.32 Pericolonic abscess K63.0
[2023-08-15] MEDS: morphine 4 mg/mL SDV 1 mL 2 MG IVP ×2 (12:13→21:19)
--- NOTE | 2023-08-15 17:23 | P.PN_ITS ---
Subjective 2 Subjective: reports abdominal pain is improving. No new complaints today. headache is better Medications: Reviewed: Yes Vitals/I&O/Wt Last Vital Signs Temp 98.2 F 08/15/23 16:00 Pulse 78 08/15/23 16:00 Resp 16 08/15/23 16:00 BP 142/89 08/15/23 16:00 Pulse Ox 94 08/15/23 16:00 O2 Del Method Room Air 08/15/23 16:00 08/15/23 08/15/23 08/15/23 06:59 14:59 22:59 Intake Total 931.25 / 2086.25 1745 / 1745 650 / 2395 Balance 931.25 / 2086.25 1745 / 1745 650 / 2395 Weight last 48 hrs Weight 100.017 kg Weight 99.155 kg Weight 99.155 kg Physical Exam 2 Narrative: General: No acute distress, AO x3 HEENT: PERRLA, pupils bilaterally equal and reactive, pallors not present Chest: Normal vesicular breath sounds, no added sounds, equal good air entry bilaterally CVS: S1-S2 regular, no murmurs, no tachycardia, no gallops, no rubs Abdomen: Soft, mild tenderness to palpation in the lower abdomen, no organomegaly, bowel sounds present Neuro: No focal deficits, no facial deformity, AO x3, power 5/5 in all limbs Data 08/15/23 03:55 08/15/23 03:55 A&P Assessment and plan (1) Pericolonic abscess: Patient presenting today with 3 months of intermittent abdominal pain. Found to have 2 pericolonic abscess, suspected from perforated diverticulitis. no knownw h/o colon ca, last colonoscopy 5-6 years ago Admit to med/surg NPO Start piperacillin/tazobactam empirically for broad spectrum coverage including anaerobes. prn morphine for abdominal pain prn zofran for nausea management Consult with general surgery given abscess size reported > 4-5 cm - assess for feasibility of surgical vs IR drainage Plan dvt ppx: Lovenox Full code Plan for today August 14, 2023: No acute interim events. Continue IV antibiotics. Blood culture thus far with no growth to date. Plan for today August 15, 2023. Patient's abdominal pain is improving. No current indication for surgical or IR intervention. Blood culture remains negative so far. Plan for 5 days of IV antibiotics until August 17, repeat CT on Wednesday to ensure that there is no worsening of further complications. Thereafter can likely transition to oral ciprofloxacin and metronidazole if continues to tolerate p.o. intake and repeat an outpatient CAT scan in 10 days from discharge. Results of the CT to be followed as outpatient with general surgery. Patient acknowledges understanding of the plan. Currently on a full liquid diet which she appears to be tolerating. Attestations 2 Medical Necessity Statement*: Continued need for IV inpatient antibiotics Coding Level of Care Code Acute Code for Chg Fwd Diagnoses Pericolonic abscess K63.0
[2023-08-15] MEDS: pantoprazole 40 mg SDV IVP (21:18)
[2023-08-15] MEDS: enoxaparin 40 mg/0.4 mL Syringe SUBCUT (21:18)
[2023-08-16] VITALS: BP 120/75; PULSE 76; RESP 16; TEMP 37; O2SAT 96
[2023-08-16] MEDS: dextrose 5%-ns + KCl 40 40 MEQ/1,000 ML BAG 75 MEQ IV ×2 (01:42→17:43)
[2023-08-16 05:00] VITALS: BP 120/78; PULSE 77; RESP 16; TEMP 37; O2SAT 96
[2023-08-16] MEDS: piperacillin-tazobactam 3.375 GM in sodium chloride 0.9% (plus) 50 ML IV ×3 (05:00→20:44)
[2023-08-16 08:00] VITALS: BP 134/87; PULSE 76; RESP 16; TEMP 36.5; O2SAT 95
[2023-08-16 12:00] VITALS: BP 122/77; PULSE 79; RESP 18; TEMP 36.8; O2SAT 96
--- NOTE | 2023-08-16 12:29 | P.PN_ITS ---
Subjective 2 Subjective: seen this am pt feels better Vitals/I&O/Wt Last Vital Signs Temp 97.7 F 08/16/23 08:00 Pulse 76 08/16/23 08:00 Resp 16 08/16/23 08:00 BP 134/87 08/16/23 08:00 Pulse Ox 95 08/16/23 08:00 O2 Del Method Room Air 08/16/23 08:00 08/15/23 08/16/23 08/16/23 22:59 06:59 14:59 Intake Total 1250 / 2995 1046.875 / 4041.875 650 / 650 Balance 1250 / 2995 1046.875 / 4041.875 650 / 650 Weight last 48 hrs Weight 100.017 kg Weight 100.017 kg Physical Exam 2 Narrative: General: No acute distress, AO x3 HEENT: PERRLA, pupils bilaterally equal and reactive, pallors not present Chest: Normal vesicular breath sounds, no added sounds, equal good air entry bilaterally CVS: S1-S2 regular, no murmurs, no tachycardia, no gallops, no rubs Abdomen: Soft, NON TENDER, no organomegaly, bowel sounds present Neuro: No focal deficits, no facial deformity, AO x3, power 5/5 in all limbs Data 08/15/23 03:55 08/15/23 03:55 Micro: Microbiology 08/13/23 19:00 Blood Culture - Preliminary Blood 08/13/23 18:53 Blood Culture - Preliminary Blood A&P Assessment and plan (1) Pericolonic abscess: Patient presenting today with 3 months of intermittent abdominal pain. Found to have 2 pericolonic abscess, suspected from perforated diverticulitis. no knownw h/o colon ca, last colonoscopy 5-6 years ago Admit to med/surg NPO Start piperacillin/tazobactam empirically for broad spectrum coverage including anaerobes. prn morphine for abdominal pain prn zofran for nausea management Consult with general surgery given abscess size reported > 4-5 cm - assess for feasibility of surgical vs IR drainage Plan dvt ppx: Lovenox Full code Plan for today August 14, 2023: No acute interim events. Continue IV antibiotics. Blood culture thus far with no growth to date. August 15, 2023. Patient's abdominal pain is improving. No current indication for surgical or IR intervention. Blood culture remains negative so far. Plan for 5 days of IV antibiotics until August 17, repeat CT on Wednesday to ensure that there is no worsening of further complications. Thereafter can likely transition to oral ciprofloxacin and metronidazole if continues to tolerate p.o. intake and repeat an outpatient CAT scan in 10 days from discharge. Results of the CT to be followed as outpatient with general surgery. Patient acknowledges understanding of the plan. Currently on a full liquid diet which she appears to be tolerating. Aug 16, 2023 plan to continue IV abx check ct abd in AM transition to oral abx if CT improved check CT 10 days from discharge and f/u with outpatient surgery transition to gi soft diet if OK by surgery. will discuss with Dr. Rubalcava. Full Code Attestations 2 Medical Necessity Statement*: continue abx today and repeat interval imaging in am Diagnoses Pericolonic abscess K63.0
[2023-08-16 16:00] VITALS: BP 131/79; PULSE 80; RESP 16; TEMP 36.7; O2SAT 94
--- NOTE | 2023-08-16 18:23 | P.PN_ITS ---
Subjective 2 Subjective: Patient seen and examined. Tolerated clear liquid diet. Pain well-controlled Vitals/I&O/Wt Last Vital Signs Temp 98.1 F 08/16/23 16:00 Pulse 80 08/16/23 16:00 Resp 16 08/16/23 16:00 BP 131/79 08/16/23 16:00 Pulse Ox 94 08/16/23 16:00 O2 Del Method Room Air 08/16/23 16:00 08/16/23 08/16/23 08/16/23 06:59 14:59 22:59 Intake Total 1046.875 / 4041.875 1250 / 1250 1850 / 3100 Balance 1046.875 / 4041.875 1250 / 1250 1850 / 3100 Weight last 48 hrs Weight 220 lb 8 oz Weight 220 lb 8 oz Physical Exam 2 Narrative: General : Patient is well developed , no acute distress, oriented x3 Head : Normal cephalic, a-traumatic. Ears : Pinnae and external canal are normal. Hearing is normal. Eyes : PERRLA, Sclera and injection are normal. No conjunctival discharge. Nose : Mucous membranes are without erythema. Throat : buccal mucosa is normal, gums are without significant recession or hypertrophy. Lungs : Equal chest rise bilaterally, no use of accessory muscles, trachea is midline. Cor : Rate and rhythm are normal. Abdomen : Soft, ND, minimal left lower quadrant tenderness, no g/r/m Extremities : No edema, no cyanosis or clubbing, dorsalis pedis pulses are present bilaterally, non-tender to palpation of calves. Upper extremities are normal bilaterally. Back : non-tender to palpation, no CVA tenderness. Neuro : CN II - XII intact, Upper and lower extremities have equal and full strength Data 08/15/23 03:55 08/15/23 03:55 Micro: Microbiology 08/13/23 19:00 Blood Culture - Preliminary Blood 08/13/23 18:53 Blood Culture - Preliminary Blood A&P Assessment and plan (1) Diverticulitis of large intestine with complication: (2) Pericolonic abscess: Plan IV antibiotics-antibiotic regimen determined by hospitalist/infectious disease Advance to full liquid diet She will need a colonoscopy in 4 to 6 weeks to assess resolution of diverticulitis and rule out colon tumor. Afterwards, it is recommended that she get an elective sigmoidectomy to avoid complicated diverticulitis and possible colostomy in the future. She is unhappy with these recommendations however Pericolonic abscesses are not large enough for IR drainage. She would likely benefit from repeat CT prior to discharge No acute surgical intervention Medical management per hospitalist Attestations 2 Medical Necessity Statement*: Per primary Coding Level of Care Code Acute Code for Chg Fwd Diagnoses Diverticulitis of large intestine with complication K57.32 Pericolonic abscess K63.0
[2023-08-16 19:19] VITALS: BP 138/74; PULSE 77; RESP 14; TEMP 36.8; O2SAT 97
[2023-08-16] MEDS: pantoprazole 40 mg SDV IVP (20:44)
[2023-08-16] MEDS: enoxaparin 40 mg/0.4 mL Syringe SUBCUT (20:44)
[2023-08-16] MEDS: acetaminophen 325 mg Tablet 650 MG PO (23:49)
[2023-08-17] VITALS: BP 147/71; PULSE 77; RESP 16; TEMP 36.8; O2SAT 95
[2023-08-17] MEDS: piperacillin-tazobactam 3.375 GM in sodium chloride 0.9% (plus) 50 ML IV (03:49)
[2023-08-17 04:00] VITALS: BP 116/75; PULSE 72; RESP 16; TEMP 36.4; O2SAT 95
[2023-08-17 06:05] LABS: Basophils % 0.7 %; Eosinophils # 0.3 10^3/uL (0.0-0.8); Eosinophils % 7.6 %; Hematocrit 33.8 % (36-47); Lymphocytes # 0.9 10^3/uL (0.8-4.8); Lymphocytes % 20.8 %; Mean Corpuscular HGB Conc 30.2 g/dL (30-55); Mean Corpuscular Hemoglobin 27.1 pg (27-33); Mean Corpuscular Volume 89.7 fl (85-98); Mean Platelet Volume 8.7 fL (7.4-10.4); Monocytes # 0.3 10^3/uL (0.2-0.9); Monocytes % 8.1 %; Neutrophils # 2.57 10^3/uL (1.8-7.7); Neutrophils % 61.4 %; Nucleated Red Blood Cells % 0 %; Platelet Count 421 10^3/cmm (157-399); Red Blood Count 3.77 10^6/uL (3.85-5.65); Red Cell Distribution Width 15.5 % (12.1-15.1); White Blood Count 4.19 10^3/uL (3.29-11.43)
[2023-08-17 06:24] LABS: Anion Gap 14.2 (5-19); Blood Urea Nitrogen 4 mg/dL (8-23); Calcium 8.6 mg/dL (8.5-10.5); Carbon Dioxide 22 mmol/L (22-29); Chloride 112 mmol/L (98-107); Glucose 126 mg/dL (65-115); Osmolality Calculated 296 mOsm/kg (285-295); Potassium 4.2 mmol/L (3.5-5.1); Sodium 144 mmol/L (136-145)
[2023-08-17 08:00] VITALS: BP 143/84; PULSE 70; RESP 16; TEMP 36.7; O2SAT 95
--- NOTE | 2023-08-17 08:00 | CT_ITS ---
WS: [id number] CT ABDOMEN AND PELVIS WITH CONTRAST HISTORY: re-assess pericolinic abscess TECHNIQUE: Imaging performed of the abdomen and pelvis with IV contrast. Single phase imaging of the abdomen. Coronal and sagittal reformats are submitted. All CT scans at [facility] use at [address] st one of these dose optimization techniques: automated exposure control; mA and/or kV adjustment per patient size (includes targeted exams where dose is matched to clinical indication); or iterative re construction. IV CONTRAST: Omnipaque 350; 100 mL IV. Oral contrast: No DLP: 1022.62 mGy.cm COMPARISON: 08/13/2023 Lower thorax: Lung bases are clear. Heart is normal size. Small hiatal hernia. Liver/biliary system: Normal size with no intrahepatic dilatation. Gallbladder: Normal. No gallstones or wall thickening. No pericholecystic fluid. Pancreas: Normal size pancreas and pancreatic duct. No adjacent inflammation. Spleen: Normal size spleen. No mass or infarct. Adrenal glands: Normal. Right kidney: Normal. Left kidney: Normal size kidney. No obstruction. Reidentified is a hypodense focus in the LEFT kidney that is too small to characterize. Aorta: Mild atherosclerosis with no aneurysm. Lymphadenopathy: None. Free fluid: None. GI tract: Reidentified are the abscesses in the LEFT pelvis associated with the sigmoid colon. The la rgest or abscess measures 3.2 x 2.8 cm and contains a few small foci of air from the perforation. Abs cess contains slightly less air but no significant change in size. The more anterior abscess in the R IGHT lower quadrant has collapsed slightly measuring 2.1 x 1.3 cm. There is no longer air within this abscess collection. There is continued marked asymmetric wall thickening and enhancement involving t he distal colon through a long segment of the sigmoid. There is marked wall thickening and narrowing of the lumen. No new abscess. Abdominal wall: Unremarkable abdominal wall. No hernia. Pelvis: No interval change. Significant beam hardening artifact from the patient's RIGHT hip arthropl asty. Bones: RIGHT hip arthroplasty. IMPRESSION: 1. Continued severe distal descending and sigmoid colon wall thickening with narrowing of the lumen and acute diverticulitis. 2. Pericolonic abscesses from perforated diverticula are reidentified. The larger abscess has not si gnificantly changed measuring 3.2 x 2.8 cm. The smaller more anterior abscess has slightly collapsed and is smaller in size measuring 2.1 x 1.3 cm. No new area of perforation or abscess.
[2023-08-17] MEDS: dextrose 5%-ns + KCl 40 40 MEQ/1,000 ML BAG 75 MEQ IV (08:46)
[2023-08-17] MEDS: iohexol 350 mg/mL 500 mL Btl (per mL) IV (09:59)
--- NOTE | 2023-08-17 10:10 | PC.CHAP ---
Pastoral Care Encounter/Spiritual Assessment Type of Contact [] Declined professor of english visit [] Patient/Family/Request visit [] Outpatient visit [] Follow-up visit [] Physician referral [] Code/Alert [x] Routine visit [] Staff referral [] Actively dying [] Patient sleeping [] Family support [] [] Out of room [] Palliative care [] [] Receiving care in room [] Pre-surgical visit [] Trauma [] Long length of stay [] ICU visit [] Other: Relational/Emotional Strength [x] Patient feels connected with others/family/visitors/staff [] Distress [] Loneliness/isolation [] Abandonment Spirituality of Patient [x] Person of [place] [] Attends Religion of their [place] [] Believes in Prayer [] Reads Bible or Shinto materials [] There are Spiritual issues to be addressed [place] Interventions [x] Prayer [x] Active listening [] Non-anxious presence [x] Spiritual/emotional support [] Crisis/trauma care [] Spiritual counseling [] Bereavement support [] Provided bereavement packet [] Provided Bible/devotional materials [] Provided toy/stuffed animal, coloring book to patient or family member [] Provided Communion [] Anointing/[place] [] Salvation [x] Completed spiritual assessment [] Other: Impact on Illness or Injury [] Angry [] Fearful [] Anxious [] Often cries [] Exhaustion [] Unable to work [] Unable to attend yarsani [] Unable to walk/stand [] Unable to read [] Unable to drive [] Unable to eat/drink [] Unable to sleep [] Unable to be with family [] Patient intubated [] Other: Summary Time spent with patient 5 min
[2023-08-17 12:00] VITALS: BP 152/83; PULSE 78; RESP 16; TEMP 36.8; O2SAT 97
--- NOTE | 2023-08-17 12:28 | P.PN_ITS ---
Subjective 2 Subjective: Seen this morning. White count is normalized. She is going to go for CT abdomen pelvis today. Vitals/I&O/Wt Last Vital Signs Temp 98.0 F 08/17/23 08:00 Pulse 70 08/17/23 08:00 Resp 16 08/17/23 08:00 BP 143/84 08/17/23 08:00 Pulse Ox 95 08/17/23 08:00 O2 Del Method Room Air 08/17/23 08:00 08/16/23 08/17/23 08/17/23 22:59 06:59 14:59 Intake Total 1850 / 3100 50 / 3150 1290 / 1290 Balance 1850 / 3100 50 / 3150 1290 / 1290 Weight last 48 hrs Weight 99.79 kg Weight 100.017 kg Physical Exam 2 Narrative: General: No acute distress, AO x3 HEENT: PERRLA, pupils bilaterally equal and reactive, pallors not present Chest: Normal vesicular breath sounds, no added sounds, equal good air entry bilaterally CVS: S1-S2 regular, no murmurs, no tachycardia, no gallops, no rubs Abdomen: Soft, NON TENDER, no organomegaly, bowel sounds present Neuro: No focal deficits, no facial deformity, AO x3, power 5/5 in all limbs Data 08/17/23 05:44 08/17/23 05:44 A&P Assessment and plan (1) Pericolonic abscess: Patient presenting today with 3 months of intermittent abdominal pain. Found to have 2 pericolonic abscess, suspected from perforated diverticulitis. no knownw h/o colon ca, last colonoscopy 5-6 years ago Admit to med/surg NPO Start piperacillin/tazobactam empirically for broad spectrum coverage including anaerobes. prn morphine for abdominal pain prn zofran for nausea management Consult with general surgery given abscess size reported > 4-5 cm - assess for feasibility of surgical vs IR drainage Plan dvt ppx: Lovenox Full code Plan for today August 14, 2023: No acute interim events. Continue IV antibiotics. Blood culture thus far with no growth to date. August 15, 2023. Patient's abdominal pain is improving. No current indication for surgical or IR intervention. Blood culture remains negative so far. Plan for 5 days of IV antibiotics until August 17, repeat CT on Wednesday to ensure that there is no worsening of further complications. Thereafter can likely transition to oral ciprofloxacin and metronidazole if continues to tolerate p.o. intake and repeat an outpatient CAT scan in 10 days from discharge. Results of the CT to be followed as outpatient with general surgery. Patient acknowledges understanding of the plan. Currently on a full liquid diet which she appears to be tolerating. Aug 17, 2023 plan to continue IV abx check ct abd today. Will dictate further course after reviewing imaging. transition to oral abx if CT improved check CT 10 days from discharge and f/u with outpatient surgery transition to gi soft diet if OK by surgery. will discuss with Dr. Rubalcava. Full Code Attestations 2 Medical Necessity Statement*: continue abx today and repeat interval imaging today. Diagnoses Pericolonic abscess K63.0
--- NOTE | 2023-08-17 14:00 | PM.DCS ---
Discharge Providers Date of Admission: 08/13/23 18:22 Date of Discharge: August 17, 2023 Attending Provider at Admission: Latricia Rosenthal MD Attending Provider at Discharge: Yahaira Weeks MD Primary Care Provider: Rachael Barrios MD Diagnoses at Discharge Discharge Diagnosis (1) Pericolonic abscess: Status: Acute Reason for Visit Reason for Visit: low potassium Brief History: Nova Mary is a 62 year old female who presented to the emergency room with chief complaints of 3 months of intermittent abdominal pain. Patient states that she has been experiencing pain in her lower abdomen for about 3 months. Does not recall any immediate inciting factors or trauma. States that pain is located in lower abdomen, varies between 3-6 on intensity, nonradiating sharp stabbing type. She had been taking medications for gastritis/reflux and gave up on NSAIDs thinking that that may be the problem. Visited with her PCP earlier this week and was recommended to get a CAT scan. This was completed in the ER and showed a pericolonic abscess with internal foci of air just medial to the proximal sigmoid colon measuring 4.2 x 5.1 x 2.9 cm. A second pericolonic abscess just anterior to the proximal/mid sigmoid colon measures 1.8 x 1.4 x 2 cm. Appendix was unremarkable. Numerous small diverticuli were noted in the descending colon and the sigmoid colon. Patient states she had a colonoscopy 5 to 6 years ago, was overall unremarkable. She gets annual FOB screening which was recently negative. She has had regular bowel movements, does take Metamucil daily for the same. History of chronic constipation. She has not noticed any blood or mucus in stools. No diarrhea. No nausea or vomiting, however her appetite has been much lower since the symptoms started. She estimates she has lost 23 pounds over the last 3 months. Not noticed any fevers at home. Tmax 99.9 Fahrenheit in the hospital. No past history of known colon malignancy. No family history of colon cancer. Her mother had breast cancer. Hospital Course Hospital Course Patient presented with on and off abdominal pain for 3 months. She was found to have perforated diverticulitis with pericolonic abscess. Unsure the chronicity of these. She was placed on Zosyn during hospital stay for [address] abdomen pelvis was repeated which showed persistent abscesses. Discussed with radiology and colonic abscess are not amenable to drainage at this time since they are encased in bowel. I discussed with general surgery who have been following her case during hospitalization as well. At this point plan is to discharge her home with ciprofloxacin and Flagyl x 14 days and to follow-up with surgery as an outpatient after having interval repeat CAT scan done at 10 days. Further course to be decided at that point. Patient has been directed to come back to the ER if she has any worsening of symptoms or develops a fever. Patient has verbalized understanding. Clinically she has improved no longer having any abdominal pain and feels well today. Discharged home in stable condition. Physical Exam Narrative: General: No acute distress, AO x3 HEENT: PERRLA, pupils bilaterally equal and reactive, pallors not present Chest: Normal vesicular breath sounds, no added sounds, equal good air entry bilaterally CVS: S1-S2 regular, no murmurs, no tachycardia, no gallops, no rubs Abdomen: Soft, NON TENDER, no organomegaly, bowel sounds present Neuro: No focal deficits, no facial deformity, AO x3, power 5/5 in all limbs Discharge Data Studies Completed and Pending Completed Studies During Hospitalization Category Date Time Status CT abdomen pelvis w con* [id number] Routine Cat Scan 08/17/23 08:[address] abdomen pelvis w con* [id number] Stat Cat Scan 08/13/23 16:59 Completed XR KUB portable [id number] Stat Exams 08/13/23 14:50 Completed Pending at discharge Category Date Time Status CT guided drainage [CT guided procedure [id number]] Routine Cat Scan 08/17/23 13:56 Ordered Blood Cultures ([facility]) Routine Lab 08/13/23 18:53 Results Blood Cultures ([facility]) Routine Lab 08/13/23 19:00 Results Laboratory Results WBC 4.19 10^3/uL (3.29-11.43) 08/17/23 05:44 RBC 3.77 10^6/uL (3.85-5.65) L 08/17/23 05:44 Hgb 10.20 g/dL (11.27-16.99) L 08/17/23 05:44 Hct 33.8 % (36-47) L 08/17/23 05:44 MCV 89.7 fl (85-98) 08/17/23 05:44 MCH 27.1 pg (27-33) 08/17/23 05:44 MCHC 30.2 g/dL (30-55) 08/17/23 05:44 RDW 15.5 % (12.1-15.1) H 08/17/23 05:44 Plt Count 421 10^3/cmm (157-399) H 08/17/23 05:44 MPV 8.7 fL (7.4-10.4) 08/17/23 05:44 Neut % (Auto) 61.4 % 08/17/23 05:44 Lymph % (Auto) 20.8 % 08/17/23 05:44 [place] % (Auto) 8.1 % 08/17/23 05:44 Eos % (Auto) 7.6 % 08/17/23 05:44 Baso % (Auto) 0.7 % 08/17/23 05:44 Neut # (Auto) 2.57 10^3/uL (1.8-7.7) 08/17/23 05:44 Lymph # (Auto) 0.9 10^3/uL (0.8-4.8) 08/17/23 05:44 [place] # (Auto) 0.3 10^3/uL (0.2-0.9) 08/17/23 05:44 Eos # (Auto) 0.3 10^3/uL (0.0-0.8) 08/17/23 05:44 Baso # (Auto) 0.0 10^3/uL (0.0-0.1) 08/17/23 05:44 Nucleated RBC % (auto) 0 % 08/17/23 05:44 Nucleated RBCs # 0.0 /100WBC 08/17/23 05:44 Sodium 144 mmol/L (136-145) 08/17/23 05:44 Potassium 4.2 mmol/L (3.5-5.1) 08/17/23 05:44 Chloride 112 mmol/L (98-107) H 08/17/23 05:44 Carbon Dioxide 22 mmol/L (22-29) 08/17/23 05:44 Anion Gap 14.2 (5-19) 08/17/23 05:44 BUN 4 mg/dL (8-23) L 08/17/23 05:44 Creatinine 0.5 mg/dL (0.5-0.9) 08/17/23 05:44 GFR Calculation 125.0 mL/min (90-130) 08/17/23 05:44 Glucose 126 mg/dL (65-115) H 08/17/23 05:44 Calculated Osmolality 296 mOsm/kg (285-295) H 08/17/23 05:44 Lactic Acid 0.7 mmol/L (0.5-2.2) 08/13/23 18:53 Calcium 8.6 mg/dL (8.5-10.5) 08/17/23 05:44 Magnesium 2.1 mg/dL (1.7-2.3) 08/14/23 04:06 Total Bilirubin 0.2 mg/dL (0.15-1.2) 08/15/23 03:55 AST 10 U/L (0-32) 08/15/23 03:55 ALT 8 U/L (0-33) 08/15/23 03:55 Alkaline Phosphatase 94 U/L (35-105) 08/15/23 03:55 Total Protein 6.4 g/dL (6.6-8.7) L 08/15/23 03:55 Albumin 3.1 g/dL (3.5-5.2) L 08/15/23 03:55 Globulin 3.3 g/dL (1.3-4.6) 08/15/23 03:55 Lipase 19 U/L (13-60) 08/13/23 15:03 Procalcitonin 0.28 ng/mL (0-0.5) 08/13/23 18:53 Urine Color Yellow (Yellow) 08/13/23 14:56 Urine Appearance Sl hazy (CLEAR) A 08/13/23 14:56 Urine pH 5 (5-7) 08/13/23 14:56 Ur Specific [place] 1.015 (1.005-1.030) 08/13/23 14:56 Urine Protein 1+ (Negative) H 08/13/23 14:56 Urine Glucose (UA) Norm (Normal) 08/13/23 14:56 Urine Ketones 1+ (Negative) H 08/13/23 14:56 Urine Blood Neg (Negative) 08/13/23 14:56 Urine Nitrate Negative (Negative) 08/13/23 14:56 Urine Bilirubin 1+ (Negative) H 08/13/23 14:56 Urine Urobilinogen 4 mg/dL (Negative) H 08/13/23 14:56 Ur Leukocyte Esterase 1+ (Negative) H 08/13/23 14:56 Urine RBC 0-4 /hpf (0-2) H 08/13/23 14:56 Urine WBC 10-15 /hpf (0-5) H 08/13/23 14:56 Ur Squamous Epith Cells 15-25 /hpf (0-5) H 08/13/23 14:56 Amorphous Sediment Not Reportable 08/13/23 14:56 Urine Bacteria Trace /hpf (NONE) 08/13/23 14:56 Urine Mucus 4+ /hpf 08/13/23 14:56 Vitals Last Vital Signs Temp 98.2 F 08/17/23 12:00 Pulse 78 08/17/23 12:00 Resp 16 08/17/23 12:00 BP 152/83 08/17/23 12:00 Pulse Ox 97 08/17/23 12:00 O2 Del Method Room Air 08/17/23 12:00 Discharge Plan Discharge Patient Disposition: Home Condition: Stable Prescriptions: New ciprofloxacin HCl [Cipro] 500 mg tablet 500 mg PO BID 14 Days Qty: 28 0RF metronidazole 500 mg tablet 500 mg PO BID 14 Days Qty: 28 0RF Continued vitamin B complex [B Complex-Vitamin B12] Tablet 1 tab PO DAILY Synthroid 175 mcg tablet 175 mcg PO DAILY potassium chloride 10 mEq tablet extended release 10 meq PO BID Women's Multivitamin 18 mg iron-400 mcg-500 mg Tablet 1 tab PO DAILY latanoprost 0.005 % drops 1 drp ophthalmic (eye) DAILY propranolol 10 mg tablet 10 mg PO BEDTIME Calcium 500 500 mg calcium (1,250 mg) Tablet 500 mg PO BID pantoprazole 40 mg tablet,delayed release (DR/EC) 40 mg PO DAILY dorzolamide-timolol 22.3-6.8 mg/mL drops 1 drp ophthalmic (eye) DAILY fluticasone propionate 50 mcg/actuation spray,suspension 2 spray INTRANASAL DAILY PRN (Reason: Allergy Symptoms) otcwjwy-wuioyytat-mgmz 333-133-5 mg Tablet 1 tab PO DAILY Vitamin D3 25 mcg (1,000 unit) Tablet 25 mcg PO DAILY Discharge Orders: Discharge Order (Routine); Ordered 08/17/23 Ordered By: Yahaira Weeks Other Ambulatory Orders: CT abdomen pelvis w con* [id number] (Routine) Timeframe: 10 Day Facility: [facility] - Location: [facility] Ordered By: Yahaira Weeks Referrals: Grey Rubalcava DO [Physician] - 2 weeks Rachael Barrios MD [Primary Care Provider] - 08/27/23 10:15 am Discharge Diet: GI Soft Discharge Activity: Resume usual activity Patient Instructions: Opioid Safety Activity Restrictions/Additional Instructions: Please return to ER if you spike a fever, feel ill, have abdominal pain, shortness of breath, diarrhea, nausea, vomiting or any other symptoms. You will need to have a repeat CAT scan done in 10 days and to follow-up with surgery as an outpatient. You do have a persistent colonic abscess which was not amenable to IR drainage as discussed with radiology for which you are being given oral antibiotics. Please ensure you complete your 14-day course as directed. Return to ER if you experience any worsening or development of new symptoms. Discharge Attestations Time Spent in Discharge Care*: greater than 30 min Quality Metrics Clinical Quality Measures [ No reported AMI, CVA or VTE this stay] Coding Level of Care Code Acute Code for Chg Fwd Diagnoses Pericolonic abscess K63.0
[2023-08-17 14:53] VITALS: BP 152/83; PULSE 78; RESP 16; TEMP 36.8; O2SAT 97
== END 2023-08-17 15:39 | disposition home or self-care (01) | DRG 392 ==
LOC: ER 16:42 → MEDSURG 19:19
PROVIDERS: Admitting Provider Student in an Organized Health Care Education/Training Program; Emergency Provider Internal Medicine; PCP Family Medicine; Visit Provider Internal Medicine
DX: K57.20 Diverticulitis of large intestine with perforation and abscess without bleeding (principal); E87.6 Hypokalemia; Z87.891 Personal history of nicotine dependence
CPT/HCPCS: 36415; 74018; 74177; 80048; 80053; 81001; 83605; 83690; 83735; 84145; 85025; 87040; 93005; 96365; 96372; 99285; C9113; J0696; J1650; J2270; J2543; J3480; Q9967

== ENCOUNTER 2023-09-15 11:38 | Emergency (ER) | payer BC, SELFPAY ==
[2023-09-15 11:43] VITALS: BP 139/84; PULSE 97; TEMP 36.7; O2SAT 97; BMI 33.4
[2023-09-15 12:04] LABS: Basophils % 0.5 %; Eosinophils # 0.1 10^3/uL (0.0-0.8); Eosinophils % 1.4 %; Lymphocytes # 0.8 10^3/uL (0.8-4.8); Lymphocytes % 9.8 %; Mean Corpuscular HGB Conc 31.1 g/dL (30-55); Mean Corpuscular Hemoglobin 27.1 pg (27-33); Mean Corpuscular Volume 87.1 fl (85-98); Mean Platelet Volume 8.6 fL (7.4-10.4); Monocytes # 0.6 10^3/uL (0.2-0.9); Monocytes % 6.6 %; Neutrophils # 6.94 10^3/uL (1.8-7.7); Neutrophils % 81.3 %; Nucleated Red Blood Cells % 0 %; Platelet Count 600 10^3/cmm (157-399); Red Blood Count 4.25 10^6/uL (3.85-5.65); Red Cell Distribution Width 16.5 % (12.1-15.1); White Blood Count 8.53 10^3/uL (3.29-11.43)
[2023-09-15 12:25] LABS: Alanine Aminotransferase 7 U/L (0-33); Albumin Level 3.8 g/dL (3.5-5.2); Alkaline Phosphatase 94 U/L (35-105); Anion Gap 18.3 (5-19); Aspartate Amino Transferase 13 U/L (0-32); Blood Urea Nitrogen 9 mg/dL (8-23); Calcium 9.9 mg/dL (8.5-10.5); Carbon Dioxide 26 mmol/L (22-29); Chloride 101 mmol/L (98-107); Creatinine Clr Calc Pharmacy 102.9439; Globulin 3.8 g/dL (1.3-4.6); Glomerular Filtration Rate 84.8 mL/min (90-130); Glucose 121 mg/dL (65-115); Lipase 20 U/L (13-60); Osmolality Calculated 294 mOsm/kg (285-295); Potassium 3.3 mmol/L (3.5-5.1); Sodium 142 mmol/L (136-145); Total Bilirubin 0.4 mg/dL (0.15-1.2); Total Protein 7.6 g/dL (6.6-8.7)
--- NOTE | 2023-09-15 13:15 | CT_ITS ---
WS: [id number] CT ABDOMEN AND PELVIS WITH CONTRAST HISTORY: vomiting r/o sbo TECHNIQUE: Imaging performed of the abdomen and pelvis with IV contrast. Single phase imaging of the abdomen. Coronal and sagittal reformats are submitted. All CT scans at [facility] use at domi st one of these dose optimization techniques: automated exposure control; mA and/or kV adjustment per patient size (includes targeted exams where dose is matched to clinical indication); or iterative re construction. IV CONTRAST: Omnipaque 350; 100 mL IV. Oral contrast: No DLP: 901.92 mGy.cm COMPARISON: 08/17/2023, 08/13/2023 Lower thorax: Lung bases are clear. Heart is normal size. No hiatal hernia. Liver/biliary system: Normal size with no intrahepatic dilatation. Gallbladder: Normal. No gallstones or wall thickening. No pericholecystic fluid. Pancreas: Normal size pancreas and pancreatic duct. No adjacent inflammation. Spleen: Normal size spleen. No mass or infarct. Adrenal glands: Normal. Right kidney: Normal. Left kidney: Normal. Aorta: Mild atherosclerosis with no aneurysm. Lymphadenopathy: None. Free fluid: None. GI tract: There is severe diffuse fecal retention and constipation with colonic enlargement that is d eveloped since 08/17/2023. Cecum measures 7.5 cm in diameter. There is inspissated fecal material with air. The LEFT splenic flexure is poorly visualized as there is breathing motion artifact and cardiac motion. There are few foci of air which cannot definitely be placed within the colon lumen but this may be secondary to the motion artifact. The area of colonic obstruction is distally into the sigmoid in the region of the previously described diverticulitis. High density material in the sigmoid colon at the site of the previously described abscesses. This is not a typical abscess. This is of increas ed density in the Hounsfield units are increased. There is sigmoid inflammatory process or mass exten ds over a length of 9.0 cm x 10.5 cm. There is a small fluid collection associated with this high den sity mass and some mild fat inflammation and necrosis. This is the areas of high-grade obstruction. T here is asymmetric wall thickening. Patient should be evaluated if colonoscopy has not already been p erformed for neoplasm. There are a few adjacent small lymph nodes which can be seen with either infec tion or neoplasm. There is also extension to involve a small bowel loop in the LEFT lower quadrant. Abdominal wall: Unremarkable abdominal wall. No hernia. Pelvis: No free fluid or adenopathy within the pelvis. Bones: Unremarkable. IMPRESSION: 1. Development of severe constipation and obstipation since 08/17/2023. In part this is due to to a h igh-grade obstruction involving the sigmoid colon. There is marked wall thickening with some enhancem ent involving the sigmoid colon. There is adjacent fat stranding and necrosis in the pericolonic fat extends to the small bowel. Abnormal soft tissue extending to the small bowel. This is not a typical appearance for an abscess. Complicated abscess versus neoplasm. If colonoscopy has not been performed this should be obtained to exclude a neoplasm. This is not a drainable collection. 2. There are a few foci of air in the LEFT upper quadrant that cannot definitely be been placed with in the GI tract but there is significant motion artifact from breathing making evaluation difficult. 3. No free fluid. 4. Transverse diameter of the cecum 7.5 cm. Notified Son Crenshaw MD at 09/15/2023 2:37 PM.
--- NOTE | 2023-09-15 13:26 | ED_ITS ---
HPI - Abdominal Pain 2 General: Chief Complaint: Abdominal Pain Stated Complaint: abd pain Time Seen by Provider: 09/15/23 13:11 Source: patient Mode of arrival: ambulatory Limitations: no limitations History of Present Illness: 62-year-old female sent here by her PCP to rule out small bowel obstruction states she has not had a bowel movement last 5 days. She states she had recently had diverticulitis finished her antibiotics had been on some pain meds and states she has been constipated. She took Dulcolax yesterday still not had a bowel movement she had some slight abdominal cramping she had some nausea denies any vomiting denies any fevers. Associated Symptoms: Reports constipation; Denies chills, diarrhea, dysuria, fever(s), nausea and vomiting Review of Systems 2 Const: Denies: fever(s) or chills ENMT: Denies: throat pain or dental pain Card: Denies: chest pain Resp: Denies: dyspnea GI: Reports: abdominal pain and constipation; Denies: nausea, vomiting or diarrhea : Denies: dysuria Musc: Denies: neck pain or back pain Skin/Breast: Denies: rash Neuro: Denies: headache(s) PFSH ED 2 PFSH: Medical History Bunion of left foot Bunion, right foot Hammertoe of left foot Surgical History S/P hammer toe correction S/P bunionectomy Family History Mother Cancer Denies family history of Diabetes CAD (coronary artery disease) Clotting disorder Dementia Hyperlipidemia Psychiatric illness Chronic kidney disease (CKD) Suicide Anesthesia complication Bleeding disorder Family history of premature coronary artery disease Lung disease Hypertension Stroke Social History Smoking and tobacco/nicotine status: former use of tobacco/nicotine Quit status (tobacco/nicotine): has quit using Year quit tobacco: 5 years ago Second hand smoke exposure: No Alcohol intake: former Substance/Drug Use: never Physical Exam 2 Const: COMMON NORMALS: no acute distress, patient oriented x3 and healthy appearing HENMT: COMMON NORMALS: normocephalic and atraumatic HEAD & SCALP: n ormocephalic and atraumatic Neck/C-Spine: COMMON NORMALS: full ROM and supple Chest: COMMONS NORMALS: normal inspection of the chest Resp: COMMON NORMALS: normal respiratory effort Cardio: COMMON NORMALS: regular rate, regular rhythm and No murmurs present (Cardio) RATE: regular rate RHYTHM: regular rhythm GI: COMMON NORMALS: Normal to inspection, nondistended, normoactive bowel sounds present, Soft to palpation, non-tender and no masses PALPATION: Yes Soft to palpation Extremity: COMMON NORMALS: normal to inspection and full ROM Neuro: COMMON NORMALS: patient oriented x3, moves all extremities and no focal motor deficits Psych: COMMON NORMALS: mental status grossly normal, Normal thought process present and cooperative THOUGHT PROCESS: Normal thought process present Skin: COMMON NORMALS: no rashes or lesions noted and no wounds GENERAL SKIN EXAM: no rashes or lesions noted Course 2 Vital Signs: Vital signs: Vital Signs Temperature 98.0 F 09/15/23 11:43 Pulse Rate 84 09/15/23 14:37 Respiratory Rate 16 09/15/23 14:37 Blood Pressure 141/94 09/15/23 14:37 Pulse Oximetry 96 09/15/23 14:37 Oxygen Delivery Me thod Room Air 09/15/23 14:37 MDM - Abdominal Pain Medical Decision Making Patient presents here with abdominal pain and constipation her CT showed the same area that was not possible diverticulitis an area that is causing the obstruction talking to CT it could be diverticulitis with an abscess or could be a neoplasm I spoke to patient at length when she was admitted here last time she had refused colonoscopy and surgery she canceled her follow-up with Dr. Rubalcava she states that she sees a surgeon in [facility] that the only person she is allowed to have anything done to her. I informed her she does not need a colonoscopy she states that she refuses to be admitted here she wants to sign out AMA and is going to drive to [facility] she has medical decision-making pasty and did sign out AMA Medical Records I reviewed the patient's medical records. Lab Data I reviewed the patient's lab results. 09/15/23 11:58 09/15/23 11:58 Labs/Radiology: Laboratory Results WBC 8.53 10^3/uL (3.29-11.43) 09/15/23 11:58 RBC 4.25 10^6/uL (3.85-5.65) 09/15/23 11:58 Hgb 11.50 g/dL (11.27-16.99) 09/15/23 11:58 Hct 37.0 % (36-47) 09/15/23 11:58 MCV 87.1 fl (85-98) 09/15/23 11:58 MCH 27.1 pg (27-33) 09/15/23 11:58 MCHC 31.1 g/dL (30-55) 09/15/23 11:58 RDW 16.5 % (12.1-15.1) H 09/15/23 11:58 Plt Count 600 10^3/cmm (157-399) H 09/15/23 11:58 MPV 8.6 fL (7.4-10.4) 09/15/23 11:58 Neut % (Auto) 81.3 % 09/15/23 11:58 Lymph % (Auto) 9.8 % 09/15/23 11:58 [place] % (Auto) 6.6 % 09/15/23 11:58 Eos % (Auto) 1.4 % 09/15/23 11:58 Baso % (Auto) 0.5 % 09/15/23 11:58 Neut # (Auto) 6.94 10^3/uL (1.8-7.7) 09/15/23 11:58 Lymph # (Auto) 0.8 10^3/uL (0.8-4.8) 09/15/23 11:58 [place] # (Auto) 0.6 10^3/uL (0.2-0.9) 09/15/23 11:58 Eos # (Auto) 0.1 10^3/uL (0.0-0.8) 09/15/23 11:58 Baso # (Auto) 0.0 10^3/uL (0.0-0.1) 09/15/23 11:58 Nucleated RBC % (auto) 0 % 09/15/23 11:58 Nucleated RBCs # 0.0 /100WBC 09/15/23 11:58 Sodium 142 mmol/L (136-145) 09/15/23 11:58 Potassium 3.3 mmol/L (3.5-5.1) L 09/15/23 11:58 Chloride 101 mmol/L (98-107) 09/15/23 11:58 Carbon Dioxide 26 mmol/L (22-29) 09/15/23 11:58 Anion Gap 18.3 (5-19) 09/15/23 11:58 BUN 9 mg/dL (8-23) 09/15/23 11:58 Creatinine 0.7 mg/dL (0.5-0.9) 09/15/23 11:58 GFR Calculation 84.8 mL/min (90-130) L 09/15/23 11:58 Glucose 121 mg/dL (65-115) H 09/15/23 11:58 Calculated Osmolality 294 mOsm/kg (285-295) 09/15/23 11:58 Calcium 9.9 mg/dL (8.5-10.5) 09/15/23 11:58 Total Bilirubin 0.4 mg/dL (0.15-1.2) 09/15/23 11:58 AST 13 U/L (0-32) 09/15/23 11:58 ALT 7 U/L (0-33) 09/15/23 11:58 Alkaline Phosphatase 94 U/L (35-105) 09/15/23 11:58 Total Protein 7.6 g/dL (6.6-8.7) 09/15/23 11:58 Albumin 3.8 g/dL (3.5-5.2) 09/15/23 11:58 Globulin 3.8 g/dL (1.3-4.6) 09/15/23 11:58 Lipase 20 U/L (13-60) 09/15/23 11:58 Procalcitonin 0.11 ng/mL (0-0.5) 09/15/23 11:58 Urine Color Yellow (Yellow) 09/15/23 13:20 Urine Appearance Sl hazy (CLEAR) A 09/15/23 13:20 Urine pH 5 (5-7) 09/15/23 13:20 Ur Specific [place] 1.025 (1.005-1.030) 09/15/23 13:20 Urine Protein 1+ (Negative) H 09/15/23 13:20 Urine Glucose (UA) Norm (Normal) 09/15/23 13:20 Urine Ketones 2+ (Negative) H 09/15/23 13:20 Urine Blood Neg (Negative) 09/15/23 13:20 Urine Nitrate Negative (Negative) 09/15/23 13:20 Urine Bilirubin 2+ (Negative) H 09/15/23 13:20 Urine Urobilinogen 1 mg/dL (Negative) H 09/15/23 13:20 Ur Leukocyte Esterase 1+ (Negative) H 09/15/23 13:20 Urine RBC 0-4 /hpf (0-2) H 09/15/23 13:20 Urine WBC 25-40 /hpf (0-5) H 09/15/23 13:20 Ur Squamous Epith Cells 25-40 /hpf (0-5) H 09/15/23 13:20 Amorphous Sediment Not Reportable 09/15/23 13:20 Urine Bacteria 1+ /hpf (NONE) H 09/15/23 13:20 Hyaline Casts 5-10 /lpf H 09/15/23 13:20 Fine Granular Casts 0-4 /lpf H 09/15/23 13:20 Other Casts Waxy /lpf 09/15/23 13:20 Urine Yeast Trace /hpf 09/15/23 13:20 All radiology interpretation(s) finalized by discharge Discharge Plan Discharge Patient Disposition: Left Against Medical Advice Clinical Impression: Pericolonic abscess, Diverticulitis of large intestine with complication Condition: Stable Prescriptions: No Action vitamin B complex [B Complex-Vitamin B12] Tablet 1 tab PO DAILY levothyroxine [Synthroid] 175 mcg tablet 175 mcg PO DAILY nm-xf-ouyo-FA-Ca carb-vit K 18 mg iron-400 mcg-500 mg Tablet 1 tab PO DAILY latanoprost 0.005 % drops 1 drp ophthalmic (eye) DAILY calcium carbonate 500 mg calcium (1,250 mg) Tablet 500 mg PO BID dorzolamide-timolol 22.3-6.8 mg/mL drops 1 drp ophthalmic (eye) DAILY fluticasone propionate 50 mcg/actuation spray,suspension 2 spray INTRANASAL DAILY PRN (Reason: Allergy Symptoms) rhbqyja-rxjsjaanq-zdsx 333-133-5 mg Tablet 1 tab PO DAILY cholecalciferol (vitamin D3) [Vitamin D3] 25 mcg (1,000 unit) Tablet 25 mcg PO DAILY Referrals: Rachael Barrios MD [Primary Care Provider] - Coding Level of Care Code ED Stave Block Roller for Chg Fwd
[2023-09-15 13:27] VITALS: BP 135/99; PULSE 86; RESP 18; O2SAT 96
[2023-09-15] MEDS: ondansetron 2 mg/ML SDV 2 mL 4 MG IVP (13:30)
[2023-09-15] MEDS: iohexol 350 mg/mL 500 mL Btl (per mL) IV (13:59)
[2023-09-15 14:31] LABS: Add Urine Microscopic? YES; Bilirubin Urine 2+ (Negative); Blood Urine Neg (Negative); Glucose Urine UA Norm (Normal); Ketones Urine 2+ (Negative); Leukocyte Esterase Urine 1+ (Negative); Nitrate Urine Negative (Negative); Protein Urine 1+ (Negative); Specific Gravity, Urine 1.025 (1.005-1.030); Urine Appearance SL Hazy (CLEAR); Urine Color Yellow (Yellow); Urobilinogen Urine 1 mg/dL (Negative); pH Urine 5 (5-7)
[2023-09-15 14:32] LABS: Bacteria Urine 1+ /hpf; RBC Urine 0-4 /hpf (0-2); Squamous Epithelial Cell Urine 25-40 /hpf (0-5); WBC Urine 25-40 /hpf (0-5)
[2023-09-15 14:36] LABS: Fine Granular Casts Urine 0-4 /lpf
[2023-09-15 14:37] VITALS: BP 141/94; PULSE 84; RESP 16; O2SAT 96
[2023-09-15 14:40] LABS: Add Urine Culture? No; Other Casts Urine WAXY /lpf
--- NOTE | 2023-09-15 15:00 | P.HP_ITS ---
Providers/Chief Complaint 2 Primary Care Provider: Rachael Barrios MD Chief Complaint: abd pain History of Present Illness Nova Mary is a 62 year old female Medications/Allergies Home Medications Medication Instructions Recorded Confirmed Last Taken Type vitamin B complex (B 1 tab PO DAILY 07/27/19 09/15/23 09/14/23 History Complex-Vitamin B12 tablet) calcium carbonate 500 mg calcium 500 mg PO BID 08/13/23 09/15/23 09/14/23 History (1,250 mg) tablet linfrdb-lilifpjre-rlyb 333 mg-133 1 tab PO DAILY 08/13/23 09/15/23 09/14/23 History mg-5 mg tablet cholecalciferol (vitamin D3) 25 25 mcg PO DAILY 08/13/23 09/15/23 09/14/23 History mcg (1,000 unit) tablet (Vitamin D3) dorzolamide 22.3 mg-timolol 6.8 1 drp ophthalmic (eye) DAILY 08/13/23 09/15/23 09/14/23 History mg/mL eye drops fluticasone propionate 50 2 spray intranasal DAILY PRN 08/13/23 09/15/23 09/14/23 History mcg/actuation nasal Allergy Symptoms spray,suspension latanoprost 0.005 % eye drops 1 drp ophthalmic (eye) DAILY 08/13/23 09/15/23 09/14/23 History levothyroxine 175 mcg tablet 175 mcg PO DAILY 08/13/23 09/15/23 09/14/23 History (Synthroid) vulrnlho-iil-vhsr-FA-Ca carb-vit K 1 tab PO DAILY 08/13/23 09/15/23 09/14/23 History 18 mg iron-400 mcg-500 mg tablet Allergies Allergy/AdvReac Type Severity Reaction Status Date / Time No Known Allergies Allergy Verified 09/15/23 11:49 PFSH Acute 2 PFSH: Medical History Bunion of left foot Bunion, right foot Hammertoe of left foot Surgical History S/P hammer toe correction S/P bunionectomy Family History Mother Cancer Denies family history of Diabetes CAD (coronary artery disease) Clotting disorder Dementia Hyperlipidemia Psychiatric illness Chronic kidney disease (CKD) Suicide Anesthesia complication Bleeding disorder Family history of premature coronary artery disease Lung disease Hypertension Stroke Social History Smoking and tobacco/nicotine status: former use of tobacco/nicotine Quit status (tobacco/nicotine): has quit using Year quit tobacco: 5 years ago Second hand smoke exposure: No Alcohol intake: former Substance/Drug Use: never Vitals/I&O/Wt Last Vital Signs Temp 98.0 F 09/15/23 11:43 Pulse 84 09/15/23 14:37 Resp 16 09/15/23 14:37 BP 141/94 09/15/23 14:37 Pulse Ox 96 09/15/23 14:37 O2 Del Method Room Air 09/15/23 14:37 Weight last 48 hrs Weight 99.79 kg Data 09/15/23 11:58 09/15/23 11:58 Coding Level of Care Code Acute Code for Chg Joseph
[2023-09-15 15:57] LABS: Procalcitonin 0.11 ng/mL (0-0.5)
== END 2023-09-15 16:01 | disposition left against medical advice (07) ==
PROVIDERS: Internal Medicine; Emergency Provider Emergency Medicine; PCP Family Medicine
DX: K57.20 Diverticulitis of large intestine with perforation and abscess without bleeding (principal); Z53.29 Procedure and treatment not carried out because of patient's decision for other reasons; Z87.891 Personal history of nicotine dependence
CPT/HCPCS: 36415; 74177; 80053; 81001; 83690; 84145; 85025; 87040; 96374; 99285; J2405; Q9967

== ENCOUNTER 2024-04-24 16:54 | Emergency (ER) | payer BC, SELFPAY ==
[2024-04-24 16:56] VITALS: BP 134/75; PULSE 71; RESP 18; TEMP 37; O2SAT 96; BMI 31.9
--- NOTE | 2024-04-24 17:19 | ED_ITS ---
HPI - Abdominal Pain General: Chief Complaint: Abdominal Pain Stated Complaint: POST SURGICAL PROBLEMS Time Seen by Provider: 04/24/24 17:03 History of Present Illness: 63-year-old female with a history of col ostomy in the past secondary to diverticular disease who presents to the emergency room with issues with a recently created ileostomy. She had a planned takedown of the ostomy but there was still some infection apparently and so an ileostomy was placed. Since she is gone home she has been having trouble with the skin around the ostomy site and keeping an ostomy bag in place. She has some redness around the area. She is tried multiple different things. Called the surgeon's office and they told her to go to the emergency room. Related Data Home Medications Medication Instructions Recorded Confirmed vitamin B complex (B 1 tab PO DAILY 07/27/19 09/15/23 Complex-Vitamin B12 tablet) calcium carbonate 500 mg PO BID 08/13/23 09/15/23 qonjozo-zzvactftn-nbgs 333 mg-133 1 tab PO DAILY 08/13/23 09/15/23 mg-5 mg tablet cholecalciferol (vitamin D3) 25 25 mcg PO DAILY 08/13/23 09/15/23 mcg (1,000 unit) tablet (Vitamin D3) dorzolamide 22.3 mg-timolol 6.8 1 drp ophthalmic (eye) DAILY 08/13/23 09/15/23 mg/mL eye drops fluticasone propionate 50 2 spray intranasal DAILY PRN 08/13/23 09/15/23 mcg/actuation nasal Allergy Symptoms spray,suspension latanoprost 0.005 % eye drops 1 drp ophthalmic (eye) DAILY 08/13/23 09/15/23 levothyroxine 175 mcg tablet 175 mcg PO DAILY 08/13/23 09/15/23 (Synthroid) otiqmwzu-cup-rbch-FA-Ca carb-vit K 1 tab PO DAILY 08/13/23 09/15/23 18 mg iron-400 mcg-500 mg tablet Allergies Allergy/AdvReac Type Severity Reaction Status Date / Time No Known Allergies Allergy Verified 09/15/23 11:49 Review of Systems Narrative: Constitutional symptoms: Negative except as documented in HPI. Skin symptoms: Negative except as documented in HPI. Eye symptoms: Negative except as documented in HPI. ENMT symptoms: Negative except as documented in HPI. Respiratory symptoms: Negative except as documented in HPI. Cardiovascular symptoms: Negative except as documented in HPI. Gastrointestinal symptoms: Negative except as documented in HPI. Genitourinary symptoms: Negative except as documented in HPI. Musculoskeletal symptoms: Negative except as documented in HPI. Neurologic symptoms: Negative except as documented in HPI. Psychiatric symptoms: Negative except as documented in HPI. Endocrine symptoms: Negative except as documented in HPI. PFSH ED PFSH: Medical History Bunion of left foot Bunion, right foot Hammertoe of left foot Surgical History S/P hammer toe correction S/P bunionectomy Family History Mother Cancer Denies family history of Diabetes CAD (coronary artery disease) Clotting disorder Dementia Hyperlipidemia Psychiatric illness Chronic kidney disease (CKD) Suicide Anesthesia complication Bleeding disorder Family history of premature coronary artery disease Lung disease Hypertension Stroke Social History Smoking and tobacco/nicotine status: former use of tobacco/nicotine Quit status (tobacco/nicotine): has quit using Year quit tobacco: 5 years ago Second hand smoke exposure: No Alcohol intake: former Substance/Drug Use: never Physical Exam Narrative: EXAM NARRATIVE: General: Alert, no acute distress. Skin: Warm, dry. Head: Normocephalic, atraumatic. Neck: Supple, trachea midline. Eye: Extraocular movements are intact. Ears, nose, mouth and throat: mucosa moist. Cardiovascular: Regular, Normal peripheral perfusion. Respiratory: Lungs are clear to auscultation, respirations are non-labored, breath sounds are equal, Symmetrical chest wall expansion. Gastrointestinal: Soft, Nontender, Non distended, ostomy is currently having output. She has some skin irritation/erythema around the site. The ostomy site is in a crevice created from scar tissue. Musculoskeletal: Normal ROM, no deformity. Neurological: Alert and oriented, No focal neurological deficit observed. Psychiatric: Cooperative, appropriate mood & affect. Course Vital Signs: Vital signs: Vital Signs Temperature 98.6 F 04/24/24 16:56 Pulse Rate 71 04/24/24 16:56 Respiratory Rate 18 04/24/24 16:56 Blood Pressure 134/75 04/24/24 16:56 Pulse Oximetry 96 04/24/24 16:56 Oxygen Delivery Me thod Room Air 04/24/24 16:56 MDM - Abdominal Pain Medical Decision Making Consultation: I spoke with Dr. Petit who kindly saw the patient in the emergency room and has changed her dressing and recommends that she follow-up with the wound clinic. Or with an ostomy nurse if possible. Assessment and plan: Ileostomy skin irritation - Discharged home - Discussed plan with patient. Answered any questions. - Evaluation and treatment of this problem were appropriate in the emergency setting. No radiology studies performed this visit Discharge Plan Discharge Patient Disposition: Home Clinical Impression: Attention to ileostomy, Skin irritation Condition: Stable Prescriptions: No Action vitamin B complex [B Complex-Vitamin B12] Tablet 1 tab PO DAILY levothyroxine [Synthroid] 175 mcg tablet 175 mcg PO DAILY qp-vy-atfi-FA-Ca carb-vit K 18 mg iron-400 mcg-500 mg Tablet 1 tab PO DAILY latanoprost 0.005 % drops 1 drp ophthalmic (eye) DAILY calcium carbonate 500 mg calcium (1,250 mg) Tablet 500 mg PO BID dorzolamide-timolol 22.3-6.8 mg/mL drops 1 drp ophthalmic (eye) DAILY fluticasone propionate 50 mcg/actuation spray,suspension 2 spray INTRANASAL DAILY PRN (Reason: Allergy Symptoms) oljeevq-rexkjlhgk-jxuw 333-133-5 mg Tablet 1 tab PO DAILY cholecalciferol (vitamin D3) [Vitamin D3] 25 mcg (1,000 unit) Tablet 25 mcg PO DAILY Discharge Orders: Discharge ED (Routine); Ordered 04/24/24 Ordered By: Velma Alan Referrals: Rachael Barrios MD [Primary Care Provider] - WOUND CARE CLINIC, [Staff Physician] - 1-3 days (Please call for follow-up appointment.) Discharge Diet: Usual diet Discharge Activity: Increase activity as tolerated Patient Instructions: Ileostomy Care (ED) Activity Restrictions/Additional Instructions: Thank you for choosing [facility] for your healthcare needs today. Please realize this is an emergency room and that we are providing you with a medical screening exam and this may not be complete and all inclusive of all the testing and or work up that you may need to determine your ailment or severity of your illness. You have been screened and evaluated and felt safe for discharge. Health conditions do change or evolve sometimes and as such it is important that you follow up with your Primary Doctor to be re checked, 3-5 days is a general good time frame for follow up. You are always welcome to return to the ED for re assessment if your symptoms are worsening or you have new concerns Coding Level of Care Code ED [employer] for Zach Ruiz
[2024-04-24 18:16] VITALS: BP 140/77; PULSE 70; O2SAT 99
--- NOTE | 2024-04-24 18:24 | PM.CONSULT ---
Providers/Reason For Consult Consulting Physician/Specialty*: General Surgery Reason for Consult*: Wound evaluation Primary Care Provider: Rachael Barrios MD History of Present Illness History of Present Illness Nova Mary is a 63 year old female with history of complicated diverticulitis, underwent de souza procedure and 6 months later went for reversal in [facility], reversal done via laparotomy, due to significant inflamation patient was given a loop ileostomy. Surgery was done on April 13. since discharge she has noted significant leakage from ostomy and redness around skin and therefore she presented Medications/Allergies Home Medications Medication Instructions Recorded Confirmed Last Taken Type vitamin B complex (B 1 tab PO DAILY 07/27/19 09/15/23 09/14/23 History Complex-Vitamin B12 tablet) calcium carbonate 500 mg PO BID 08/13/23 09/15/23 09/14/23 History nwavwfa-smjaanyym-wglx 333 mg-133 1 tab PO DAILY 08/13/23 09/15/23 09/14/23 History mg-5 mg tablet cholecalciferol (vitamin D3) 25 25 mcg PO DAILY 08/13/23 09/15/23 09/14/23 History mcg (1,000 unit) tablet (Vitamin D3) dorzolamide 22.3 mg-timolol 6.8 1 drp ophthalmic (eye) DAILY 08/13/23 09/15/23 09/14/23 History mg/mL eye drops fluticasone propionate 50 2 spray intranasal DAILY PRN 08/13/23 09/15/23 09/14/23 History mcg/actuation nasal Allergy Symptoms spray,suspension latanoprost 0.005 % eye drops 1 drp ophthalmic (eye) DAILY 08/13/23 09/15/23 09/14/23 History levothyroxine 175 mcg tablet 175 mcg PO DAILY 08/13/23 09/15/23 09/14/23 History (Synthroid) dnatxizu-adj-afec-FA-Ca carb-vit K 1 tab PO DAILY 08/13/23 09/15/23 09/14/23 History 18 mg iron-400 mcg-500 mg tablet zinc oxide 12 % topical cream 1 applic topical TID PRN skin 04/24/24 Unknown Rx irritation #142 grams Allergies Allergy/AdvReac Type Severity Reaction Status Date / Time No Known Allergies Allergy Verified 09/15/23 11:49 PFSH Acute PFSH: Medical History Bunion of left foot Bunion, right foot Hammertoe of left foot Surgical History S/P hammer toe correction S/P bunionectomy Family History Mother Cancer Denies family history of Diabetes CAD (coronary artery disease) Clotting disorder Dementia Hyperlipidemia Psychiatric illness Chronic kidney disease (CKD) Suicide Anesthesia complication Bleeding disorder Family history of premature coronary artery disease Lung disease Hypertension Stroke Social History Smoking and tobacco/nicotine status: former use of tobacco/nicotine Quit status (tobacco/nicotine): has quit using Year quit tobacco: 5 years ago Second hand smoke exposure: No Alcohol intake: former Substance/Drug Use: never Vitals/I&O/Wt Last Vital Signs Temp 98.6 F 04/24/24 16:56 Pulse 70 04/24/24 18:16 Resp 18 04/24/24 16:56 BP 140/77 04/24/24 18:16 Pulse Ox 99 04/24/24 18:16 O2 Del Method Room Air 04/24/24 16:56 Weight last 48 hrs Weight 210 lb Physical Exam GI: OTHER: left mid abdomen ostomy is functional, sits in a fold of the abdominal wall. there is surrounding erythema and irritation of the skin, no ulceration. midline incision healing well. A&P Assessment and plan (1) Attention to ileostomy: (2) Skin irritation: Plan I had extensive discussion with the patient, unfortunatelly the ostomy sits in a skin fold and therefore it will be impossible to prevent leakage without advance wound care that may include crusting of the surrounding skin and elevation of the fold with stoma rings or stomapaste. I attempted to provide wound care at the bedside but I do no have advance wound care products available. ostomy was replaced but I did inform patient thet it will likely leak. she was instructed to follow up at the wound care clinic or with ostomy nurse that can be set up with her surgeon. she swows understanding, will follow up with especialist and will continue prn ostomy changes as needed. she will also receive a prescription for zinc oxide cream to prevent further maceration of skin Coding Level of Care Code 21151 Diagnoses Attention to ileostomy Z43.2 Skin irritation R23.8
== END 2024-04-24 18:18 | disposition home or self-care (01) ==
PROVIDERS: Emergency Provider Emergency Medicine; PCP Family Medicine
DX: Z43.2 Encounter for attention to ileostomy (principal); L98.9 Disorder of the skin and subcutaneous tissue, unspecified; Z87.891 Personal history of nicotine dependence
CPT/HCPCS: 99282

== ENCOUNTER 2025-06-01 11:48 | Outpatient (CLI) | payer BC, SELFPAY ==
--- NOTE | 2025-06-01 11:54 | USCV_ITS ---
Nova Mary Age: 64 Gender: F : 1960 Exam Date: 06/01/2025 12:11 Ordering Phys: Shawna Freeman NP Technologist: Exam Location: [facility] [place] Indication: hx of dvt HISTORY: History of deep venous thrombosis. PROCEDURES: Venous duplex imaging was performed in only the left lower extremity. Serial compression, augmentation maneuvers, and spectral Doppler flow evaluation were performed. FINDINGS: Normal 2-D Doppler and augmentation and compressibility throughout the lower extremity venous structures. Additional imaging through the proximal calf veins also reveals no thrombus. Limited evaluation of the greater saphenous vein is patent with no thrombus. CONCLUSIONS No DVT left lower extremity. Dr. Esperanza Crenshaw DO (Electronically Signed) Final Date: 01 June 2025 13:43 S
== END 2025-06-01 11:49 | disposition home or self-care (01) ==
LOC: RAD 11:49
PROVIDERS: PCP Family Medicine; Visit Provider Nurse Practitioner Family
DX: I74.9 Embolism and thrombosis of unspecified artery (principal)
CPT/HCPCS: 93971